=== PATIENT | female | born 1950 | race Caucasian/White ===

== ENCOUNTER 2019-02-14 18:58 | Inpatient (IN) | payer MEDICARE ==
[2019-02-14 20:43] LABS: #Lymphocytes 0.9 thou/uL (1.20-3.40); #Monocytes 0.5 thou/uL (0.11-0.59); #Neutrophils 3.5 thou/uL (1.40-6.50); %Basophils 0.2 % (0.0-1.0); %Eosinophils 0.1 % (0.0-10.0); %Monocytes 9.8 % (0.0-10.0); %Neutrophils 71.9 % (42.0-75.0); Hemoglobin 10.2 g/dL (12.0-16.0); Mean Corpuscular HGB CONC 33.1 g/dL (32.0-36.0); Mean Corpuscular Volume 96.7 fL (78.0-98.0); Mean Platelet Volume 5.7 fL (7.4-10.4); Platelet Count 192 thou/uL (130-400); White Blood Cell (WBC) Count 4.9 thou/uL (4.8-10.8)
[2019-02-14] MEDS ORDERED: metroNIDAZOLE 500 MG/100 ML BAG ONE (20:45)
[2019-02-14] MEDS ORDERED: cefTRIAXone\\ROCEPHIN 1 GM VIAL ONE (20:45)
--- NOTE | 2019-02-14 20:52 | RAD ---
RADIOGRAPH CHEST 1 VIEW: DATE: 02/14/2019 HISTORY: 68-year-old female with fever FINDINGS: There are no airspace densities, pulmonary edema, pneumothorax, or cardiomegaly. The lateral costophr enic angles are sharp. IMPRESSION: No acute cardiopulmonary findings.
[2019-02-14 21:05] LABS: ALT (SGPT) 27 U/L (8-55); AST (SGOT) 32 U/L (5-34); Albumin 2.9 g/dL (3.4-4.8); Alkaline Phosphatase 95 U/L (40-150); Anion Gap 9 mmol/L (10-20); BUN (Urea Nitrogen) 36 mg/dL (9.8-20.1); Bilirubin, Total 0.2 mg/dL (0.2-1.2); Calc. Creatinine Clearance 0 mL/min (70-130); Calcium 8.2 mg/dL (7.8-10.44); Carbon Dioxide 16 mmol/L (23-31); Chloride 103 mmol/L (98-107); Estimated GFR-MDRD 26; Globulin 2.8 g/dL (2.4-3.5); Glucose 213 mg/dL (80-115); Magnesium 2.4 mg/dL (1.6-2.6); Potassium 4.1 mmol/L (3.5-5.1); Protein, Total 5.7 g/dL (6.0-8.3); Sodium 124 mmol/L (136-145)
--- NOTE | 2019-02-14 21:24 | CT ---
Exam: Abdomen CT without contrast Pelvic CT without contrast HISTORY: Abdominal pain. COMPARISON: 05/14/2013 FINDINGS: Abdomen CT: Lung bases:Chronic changes Heart size: Normal size. No significant pericardial fluid Aorta: Atherosclerosis. No periaortic fat stranding. Solid organs: Limited evaluation due to lack of IV contrast. Grossly no solid organ abnormality. Lymph nodes: No gastrohepatic, retrocrural or periportal lymphadenopathy Gallbladder: Not appreciated and is presumed to be surgically absent. Mesentery: No mass, lymphadenopathy, free air or free fluid Kidneys: Bilaterally, no hydronephrosis, nephrolithiasis or perinephric fat stranding. Bilateral uret ers have a normal caliber. No hydroureter, periureteral fat stranding or ureterolithiasis. Alimentary canal: Limited evaluation due to technique. Small hiatal hernia is noted. Grossly the zehra alvarez mucosa are unremarkable. Multiple normal caliber small bowel loops are noted. Limited evaluation of the ileocecal junction. Some of the small bowel loops do appear to be somewhat distende d. Ileus or early obstructive process cannot be excluded. There is mucosal thickening involving the visualized distal descending and sigmoid colon. Copious amount of fecal material in the distal sigmoi d colon and rectum. Correlate for fecal impaction. Findings do suggest the possibility of a right hemicolectomy. Correlate with patient's surgical history. Possible suture chain in the right upper qu adrant. CT PELVIS: No mass, adenopathy, free air or free fluid. Urinary bladder: Unremarkable. Osseous structures: No lytic or blastic lesions IMPRESSION: 1. Limited evaluation due to technique. 2. No evidence of obstructive uropathy 3. Mucosal thickening with fecal material in the left hemicolon as described above. Correlate for com ponent of impaction distal sigmoid colon and rectum. 4. Prominent small bowel loops. Ileus or early obstructive process cannot be excluded. There does darvin ear to be evidence for a previous right hemicolectomy with a suture chain in the right upper quadrant. Correlate with surgical history. Transcribed Date/Time: 02/14/2019 9:29 PM
[2019-02-14 21:47] LABS: Bacteria/HPF 1+ HPF (None Seen); Bilirubin Negative (Negative); Blood, Urine 2+ (Negative); Clarity Clear (Clear); Glucose, Urine (Dipstick) 300 mg/dL (Negative); Leukocyte Negative Leu/uL (Negative); Nitrite Negative (Negative); Protein, Urine (Dipstick) 300 mg/dL (Neg-Trace); RBC/HPF 0-3 HPF (0-3); Squamous Epithelial 0-3 HPF (0-3); Urobilinogen Normal mg/dL (Less than 2); WBC/HPF 0-3 HPF (0-3)
[2019-02-14 22:28] LABS: Base Excess-Venous -10.1 mmol/L (-2.0 to 3.0); Bicarbonate (HCO3v) 16.2 mmol/L (22.0-28.0); Calcium, Ionized 1.15 mmol/L (See Comments:); Chloride 102 mmol/L (98-107); Potassium 4.6 mmol/L (3.5-5.1); Sodium 128 mmol/L (138-145); T. Carbon Dioxide 17.3 mmol/L (22.0-28.0); vO2 Saturation-calc 63.1 % (60.0-85.0)
[2019-02-14 23:46] VITALS: BMI 17.9
[2019-02-15] MEDS: Lactated Ringer's 1,000 ML IV SCH ×2 (00:16→06:08)
[2019-02-15 01:00] LABS: ALT (SGPT) 36 U/L (8-55); AST (SGOT) 52 U/L (5-34); Albumin 2.8 g/dL (3.4-4.8); Alkaline Phosphatase 100 U/L (40-150); Anion Gap 12 mmol/L (10-20); BUN (Urea Nitrogen) 31 mg/dL (9.8-20.1); Bilirubin, Total 0.2 mg/dL (0.2-1.2); Calc. Creatinine Clearance 27 mL/min (70-130); Calcium 8.2 mg/dL (7.8-10.44); Carbon Dioxide 12 mmol/L (23-31); Chloride 104 mmol/L (98-107); Estimated GFR-MDRD 32; Glucose 105 mg/dL (80-115); Potassium 4.5 mmol/L (3.5-5.1); Protein, Total 5.8 g/dL (6.0-8.3); Sodium 123 mmol/L (136-145)
[2019-02-15 05:40] LABS: ALT (SGPT) 33 U/L (8-55); AST (SGOT) 40 U/L (5-34); Albumin 2.8 g/dL (3.4-4.8); Alkaline Phosphatase 98 U/L (40-150); Anion Gap 9 mmol/L (10-20); BUN (Urea Nitrogen) 28 mg/dL (9.8-20.1); Bilirubin, Total 0.2 mg/dL (0.2-1.2); Calc. Creatinine Clearance 26 mL/min (70-130); Calcium 8.1 mg/dL (7.8-10.44); Carbon Dioxide 18 mmol/L (23-31); Chloride 102 mmol/L (98-107); Estimated GFR-MDRD 31; Globulin 2.8 g/dL (2.4-3.5); Glucose 109 mg/dL (80-115); Potassium 4.1 mmol/L (3.5-5.1); Protein, Total 5.6 g/dL (6.0-8.3); Sodium 125 mmol/L (136-145)
[2019-02-15] MEDS ORDERED: Ondansetron ODT 4 MG TAB PO PRN (07:09)
[2019-02-15] MEDS ORDERED: Cepastat Lozenges 1 LOZ PO PRN (07:09)
[2019-02-15] MEDS ORDERED: Bisacodyl 10 MG SUPP PR PRN (07:09)
[2019-02-15] MEDS ORDERED: Ondansetron PF 4 MG/2 ML Vial IVP PRN (07:09)
[2019-02-15] MEDS ORDERED: hydrALAZINE 20 MG/ML VIAL SLOW IVP PRN (07:09)
[2019-02-15] MEDS ORDERED: Loratadine 10 MG TAB PO PRN (07:09)
[2019-02-15] MEDS ORDERED: Diabetic Tussin 200 MG/10 ML UDCUP PO PRN (07:09)
[2019-02-15] MEDS ORDERED: HYDROcodone/Acetaminophen 5/325 mg Tablet PO PRN (07:09)
[2019-02-15] MEDS ORDERED: Zolpidem Tartrate 5 MG TAB PO PRN (07:09)
[2019-02-15] MEDS ORDERED: Sodium Chloride 0.65% Nasal 44 ML BOT EA NARE PRN (07:09)
[2019-02-15] MEDS ORDERED: Calcium Carbonate 500 MG ChewTAB PO PRN (07:09)
[2019-02-15] MEDS ORDERED: Artificial Tears 18 DROP/0.9 ML EA EYE PRN (07:09)
[2019-02-15] MEDS ORDERED: Senokot S 8.6-50 MG TAB PO PRN (07:09)
[2019-02-15] MEDS ORDERED: Acetaminophen 325 MG TAB PO PRN (07:09)
[2019-02-15] MEDS ORDERED: Vancomycin HCl 1 GM in Premix Bag 1 BAG IVPB SCH (07:45)
[2019-02-15] MEDS ORDERED: Vancomycin HCl 250 MG in Sodium Chloride 0.9% 100 ML IVPB SCH (07:45)
[2019-02-15] MEDS ORDERED: Vancomycin HCl 500 MG in Sodium Chloride 0.9% 100 ML IVPB SCH (07:45)
[2019-02-15] MEDS ORDERED: Vancomycin HCl 750 MG in Sodium Chloride 0.9% 250 ML 250 ML IVPB SCH (07:45)
[2019-02-15] MEDS: 1/2 NS w/KCL 20 mEq 1,000 ML IV SCH ×3 (08:57→23:36)
[2019-02-15] MEDS: Enoxaparin Sodium 30 MG/0.3 ML SYRINGE SC SCH (08:57)
[2019-02-15] MEDS: Famotidine 20 MG TAB PO SCH (08:58)
[2019-02-15] MEDS: Saccharomyces boulardii 250 MG CAP PO SCH (08:58)
[2019-02-15] MEDS ORDERED: Prevnar 13-Val Conj/PF 0.5 ML SYRINGE IM ONE (09:00)
[2019-02-15] MEDS: Piperacillin/Tazobactam 3.375 GM in Sodium Chloride 0.9% 100 ML IVPB SCH ×3 (11:26→23:36)
--- NOTE | 2019-02-15 11:46 | HP ---
PRIMARY CARE PHYSICIAN: [facility]. REASON FOR ADMISSION: Transfer from [facility] for colitis, sepsis. HISTORY OF PRESENT ILLNESS: A 68-year-old female, who has underlying history of ulcerative colitis. The patient is on chronic immunosuppressive therapy with Humira. The patient was having lower abdominal discomfort as well as diarrhea and nausea as well as fever with chills at home. She was feeling more and more weak. She had a syncopal episode at home today. The patient was brought by her to [facility], where the patient was found with hyponatremia, hypomagnesemia. The patient was transferred to our hospital. In our emergency room, the patient was febrile with a temperature 102.4. She had CT abdomen and pelvis, which showed finding suggestive of colitis as well as suspected finding of ileus versus fecal impaction. The patient denies any vomiting. She denies any abdominal pain. She had good bowel movement earlier today. She denies any chest pain, palpitation, but she is feeling weak, dizzy, and malaise. She has intermittent rigors. She denies any UTI symptoms. She denies any recent upper respiratory or lower respiratory symptoms. She denies any sick exposure or recent travel, and she denies any antibiotic exposure. REVIEW OF SYSTEMS: CONSTITUTIONAL: Negative for weight loss or gain, ability to conduct usual activities. SKIN: Negative for rash, itching. EYES: Negative for double vision, pain. ENT/MOUTH: Negative for nose bleeding, neck stiffness, pain, tenderness. CARDIOVASCULAR: Negative for palpitations, dyspnea on exertion, orthopnea. RESPIRATORY: Negative for shortness of breath, wheezing, cough, hemoptysis, fever or night sweats. GASTROINTESTINAL: Negative for poor appetite, abdominal pain, heartburn, nausea, vomiting, constipation, or diarrhea. GENITOURINARY: Negative for urgency, frequency, dysuria, nocturia. MUSCULOSKELETAL: Negative for pain, swelling. NEUROLOGIC/PSYCHIATRIC: Negative for anxiety, depression. ALLERGY/IMMUNOLOGIC: Negative for skin rash, bleeding tendency. Please see my HPI for pertinent positives and negatives. All other review of systems reviewed and negative except as mentioned in HPI. PAST MEDICAL HISTORY: Glomerulonephritis, ulcerative colitis, and history of colon cancer. PAST SURGICAL HISTORY: Colon cancer surgery and tonsillectomy. PAST PSYCHIATRIC HISTORY: Reviewed and negative. SOCIAL HISTORY: The patient is , lives at home with her . No history of tobacco, alcohol, or illicit drug abuse. FAMILY HISTORY: No family history of coronary artery disease, stroke, or cancer. CURRENT HOME MEDICATION: Humira 40 mg subcu every 2 weeks. ALLERGIES: PANTOPRAZOLE. EMERGENCY ROOM COURSE: Reviewed. PHYSICAL EXAMINATION: VITAL SIGNS: On arrival, blood pressure 144/57, pulse 90, respiratory rate 22, temperature 102.4, saturation 99% on room air, and weight 54.4 kg. GENERAL: The patient is currently alert, awake. No obvious acute distress. HEENT: Head; normocephalic and atraumatic. Eyes; pupils round and reactive to light. Extraocular muscle intact. ENT, oropharynx within normal limits. Dry appearing mucous membranes. No oral lesion. No pharyngeal erythema. No exudate. NECK: Supple. No JVD. No thyromegaly. No carotid bruit. No jugular venous distention. LUNGS: Clear to auscultation without any rhonchi or rales. CARDIAC: S1 and S2 regular. No murmur. No gallop. No rub. ABDOMEN: Soft. Mild left-sided tenderness noted. No peritoneal sign. No organomegaly. No mass. No suprapubic tenderness. BACK: Unremarkable. No CVA tenderness. EXTREMITIES: Upper extremity, passive movement of all joints are normal. Lower extremity, no edema. Good distal pulsation. SKIN: No skin rash. HEMATOLOGIC: No lymphadenopathy. NEUROLOGIC: Nonfocal examination. SIGNIFICANT LABORATORY DATA: Chest x-ray based on my review, no acute cardiopulmonary process. CT abdomen and pelvis showing small bowel loops appear somewhat distended. Distal descending and sigmoid colon thickening. Copious amount of fecal material in distal sigmoid colon and rectum. CBC; WBC 4.9, hemoglobin 10.2, platelet 192. VBG; pH , bicarb 16.2, CO2 of 36.0, pO2 of 37.2. BMP; sodium 125, potassium 4.1, chloride 102, carbon dioxide 18, BUN 28, creatinine 1.62, glucose 109, calcium 8.1. LFT; AST 40, ALT 33, alkaline phosphatase 98, albumin 2.8. TSH 1.01. Cortisol 17.7. Urinalysis unremarkable. ASSESSMENT AND PLAN: 1. Acute on chronic kidney failure, baseline chronic kidney disease stage 3, likely related with underlying diarrhea and volume depletion. The patient will be given IV fluid. We will monitor renal function. Avoid nephrotoxin agent. 2. Colitis. We will check stool for infection workup including ova and parasite, Campylobacter antigen culture, C difficile, Escherichia coli, Shigella toxin. The patient will be kept on empiric antibiotic therapy with Zosyn. The patient has underlying history of ulcerative colitis and that is why inflammatory process is also likely. We will consult Gastroenterology for their evaluation. 3. Fecal impaction. The patient had good bowel movement, less likely to be fecal impacted at this point. 4. Hypomagnesemia, replaced in the emergency room. We will repeat magnesium level tomorrow. 5. Hyponatremia. We will send TSH, random cortisol, urine osmolality, serum osmolality. We will continue with IV fluid NS and we will repeat BMP tomorrow. 6. Sepsis, likely due to underlying colitis. We will rule out infectious etiology. The patient is already on empiric Zosyn. The patient meets sepsis criteria on admission. 7. History of normocytic normochromic anemia. We will continue to monitor hemoglobin. 8. History of malignant neoplasm of colon, treated with colectomy. 9. History of ulcerative colitis, treated with immunosuppressive therapy. GI consulted. 10. Deep venous thrombosis prophylaxis, Lovenox 30 mg subcu daily. GI prophylaxis, Pepcid 20 mg p.o. b.i.d. 11. Hypoalbuminemia due to moderate protein-calorie malnutrition. Nutritional support will be given. CODE STATUS: The patient is full code. The patient's is surrogate decision maker. DISPOSITION PLAN: Based on clinical course, we are expecting the patient's stay in hospital more than 2 midnights. Plan of care discussed with the patient in detail. Job ID: [id number]
[2019-02-15 15:03] LABS: Creatinine, Urine 40.5 mg/dL (47-110)
[2019-02-16 05:58] LABS: ALT (SGPT) 31 U/L (8-55); AST (SGOT) 37 U/L (5-34); Albumin 2.3 g/dL (3.4-4.8); Alkaline Phosphatase 82 U/L (40-150); Anion Gap 10 mmol/L (10-20); BUN (Urea Nitrogen) 24 mg/dL (9.8-20.1); Bilirubin, Total 0.2 mg/dL (0.2-1.2); Calc. Creatinine Clearance 23 mL/min (70-130); Calcium 7.7 mg/dL (7.8-10.44); Carbon Dioxide 14 mmol/L (23-31); Chloride 103 mmol/L (98-107); Estimated GFR-MDRD 27; Globulin 2.3 g/dL (2.4-3.5); Glucose 83 mg/dL (80-115); Magnesium 1.6 mg/dL (1.6-2.6); Potassium 4.1 mmol/L (3.5-5.1); Protein, Total 4.6 g/dL (6.0-8.3); Sodium 123 mmol/L (136-145)
[2019-02-16 06:00] LABS: Phosphorus 2.8 mg/dL (2.3-4.7)
[2019-02-16] MEDS: Piperacillin/Tazobactam 3.375 GM in Sodium Chloride 0.9% 100 ML IVPB SCH ×3 (06:06→18:22)
[2019-02-16 08:04] LABS: Band 26 % (5-11); Hemoglobin 8.8 g/dL (12.0-16.0); Lymphocytes 39 % (21-51); MDiff Complete? YES; Mean Corpuscular HGB CONC 32.8 g/dL (32.0-36.0); Mean Corpuscular Hemoglobin 32.7 pg (27.0-31.0); Mean Corpuscular Volume 99.6 fL (78.0-98.0); Mean Platelet Volume 5.9 fL (7.4-10.4); Monocytes 9 % (0-10); Neutrophil 23 % (42-75); Platelet Count 149 thou/uL (130-400); RBC Distribution Width 11.2 % (11.5-14.5); Red Blood Cell (RBC) Count 2.69 mill/uL (4.20-5.40); White Blood Cell (WBC) Count 3.8 thou/uL (4.8-10.8)
[2019-02-16] MEDS: Saccharomyces boulardii 250 MG CAP PO SCH (09:23)
[2019-02-16] MEDS: Enoxaparin Sodium 30 MG/0.3 ML SYRINGE SC SCH (09:24)
[2019-02-16] MEDS: Famotidine 20 MG TAB PO SCH (09:24)
[2019-02-16] MEDS: Vancomycin HCl 500 MG in Sodium Chloride 0.9% 100 ML IVPB SCH (09:25)
--- NOTE | 2019-02-16 09:31 | PDOC.PN ---
- Subjective Encounter Start Date: 02/16/19 Encounter Start Time: 08:30 -: old records requested/rev pt has her chronic diarrhoea, no abdominal pain, today her sodium dropped and creatinine increased - Objective Resuscitation Status - Order Detail: 02/15/19 07:09 Resuscitation Status Routine Resuscitation Status: FULL: Full Resuscitation MAR Reviewed: Yes Vital Signs & Weight: Vital Signs (12 hours) Temp Pulse Resp BP Pulse Ox 02/16/19 07:54 98 F 65 16 96/57 L 98 02/16/19 04:20 98.0 F 67 20 100/55 L 98 02/15/19 23:18 98 F 73 16 111/62 98 Weight Admit Weight 114 lb 4.8 oz Weight 114 lb 4.8 oz I&O: 02/15/19 02/16/19 02/17/19 06:59 06:59 06:59 Intake Total 1240 Balance 1240 Result Diagrams: 02/16/19 05:07 02/16/19 05:07 Phys Exam - Physical Examination Constitutional: NAD HEENT: PERRLA, moist MMs, sclera anicteric Neck: no JVD, supple Respiratory: no wheezing, no rales, no rhonchi Cardiovascular: RRR, no significant murmur, no rub Gastrointestinal: soft, non-tender, no distention, positive bowel sounds Musculoskeletal: no edema, pulses present Neurological: non-focal, normal sensation Lymphatic: no nodes Psychiatric: normal affect, A&O x 3 Skin: no rash, normal turgor Dx/Plan (1) Acute worsening of stage 3 chronic kidney disease Code(s): N18.3 - CHRONIC KIDNEY DISEASE, STAGE 3 (MODERATE) Status: Acute (2) Colitis Code(s): K52.9 - NONINFECTIVE GASTROENTERITIS AND COLITIS, UNSPECIFIED Status : Acute (3) Fecal impaction Code(s): K56.41 - FECAL IMPACTION Status: Resolved (4) Hypomagnesemia Code(s): E83.42 - HYPOMAGNESEMIA Status: Resolved (5) Hyponatremia Code(s): E87.1 - HYPO-OSMOLALITY AND HYPONATREMIA Status: Acute (6) Sepsis Code(s): A41.9 - SEPSIS, UNSPECIFIED ORGANISM Status: Acute (7) Anemia, normocytic normochromic Code(s): D64.9 - ANEMIA, UNSPECIFIED Status: Chronic (8) H/O malignant neoplasm of colon Code(s): Z85.038 - PERSONAL HISTORY OF MALIGNANT NEOPLASM OF LARGE INTESTINE Status: Chronic (9) H/O ulcerative colitis Code(s): Z87.19 - PERSONAL HISTORY OF OTHER DISEASES OF THE DIGESTIVE SYSTEM Status: Chronic (10) Protein-calorie malnutrition, moderate Code(s): E44.0 - MODERATE PROTEIN-CALORIE MALNUTRITION Status: Chronic (11) Ileus Code(s): K56.7 - ILEUS, UNSPECIFIED Status: Resolved (12) Metabolic acidosis Code(s): E87.2 - ACIDOSIS Status: Acute - Plan cont current plan of care, continue antibiotics * continue empiric antibiotics * stool for infection work up negative * discontinue IVF * GI recommendation noted * medication reviewed as below * symptomatic treatment * follow culture * will consider discharge if culture continue to be negative. * continue nephrology * will add sodium bicarbonate 650 mg po bid * repeat labs tomorrow Review of Systems - Review of Systems Eyes: negative: Pain, Vision Change, Conjunctivae Inflammation, Eyelid Inflammation, Redness, Other ENT: negative: Ear Pain, Ear Discharge, Nose Pain, Nose Discharge, Nose Congestion, Mouth Pain, Mouth Swelling, Throat Pain, Throat Swelling, Other Respiratory: negative: Cough, Dry, Shortness of Breath, Hemoptysis, SOB with Excertion, Pleuritic Pain, Sputum, Wheezing Cardiovascular: negative: chest pain, palpitations, orthopnea, paroxysmal nocturnal dyspnea, edema, light headedness, other Gastrointestinal: Diarrhea. negative: Nausea, Vomiting, Abdominal Pain, Constipation, Melena, Hematochezia, Other Genitourinary: negative: Dysuria, Frequency, Incontinence, Hematuria, Retention , Other Musculoskeletal: negative: Neck Pain, Shoulder Pain, Arm Pain, Back Pain, Hand Pain, Leg Pain, Foot Pain, Other Skin: negative: Rash, Lesions, Ihsan, Bruising, Other - Medications/Allergies Allergies/Adverse Reactions: Allergies Allergy/AdvReac Type Severity Reaction Status Date / Time pantoprazole sodium Allergy Intermediate Rash Verified 04/12/13 10:47 [From Protonix] corn [[place]] Allergy Verified 04/10/13 22:10 milk Allergy Verified 04/10/13 22:10 wheat Allergy Verified 04/10/13 22:10 Medications: Current Medications Acetaminophen (Tylenol) 650 mg PO Q4H PRN PRN Reason: Headache/Fever/Mild Pain (1-3) Hydrocodone Bitart/Acetaminophen ([place] 5/325) 1 tab PO Q4H PRN PRN Reason: Moderate Pain (4-6) Artificial Tears (Tears Naturale) 2 drop EA EYE PRN PRN PRN Reason: Dry Eyes Bisacodyl (Dulcolax) 10 mg NE DAILYPRN PRN PRN Reason: Constipation Calcium Carbonate (Tums) 1,000 mg PO Q4H PRN PRN Reason: Heartburn or Indigestion Enoxaparin Sodium (Lovenox) 30 mg SC 0900 [facility] Last Admin: 02/16/19 09:24 Dose: 30 mg Famotidine (Pepcid) 20 mg PO DAILY [facility] Last Admin: 02/16/19 09:24 Dose: 20 mg Guaifenesin (Robitussin Sf) 200 mg PO Q4H PRN PRN Reason: Cough Hydralazine HCl (Apresoline) 10 mg SLOW IVP Q4H PRN PRN Reason: SBP > 180 and HR < 70 Piperacillin Sod/Tazobactam (Sod 3.375 gm/ Sodium Chloride) 100 mls @ 200 mls/ hr IVPB Q6HR [facility] Last Admin: 02/16/19 06:06 Dose: 100 mls Vancomycin HCl 500 mg/ Sodium (Chloride) 100 mls @ 100 mls/hr IVPB 0900 [facility] Last Admin: 02/16/19 09:25 Dose: 100 mls Loratadine (Claritin) 10 mg PO DAILYPRN PRN PRN Reason: Sinus Symptoms Miscellaneous Medication (Pharmacy To Dose) 1 each IVPB PRN PRN PRN Reason: Pharmacy to dose Ondansetron HCl (Zofran Odt) 4 mg PO Q6H PRN PRN Reason: Nausea/Vomiting Ondansetron HCl (Zofran) 4 mg IVP Q6H PRN PRN Reason: Nausea/Vomiting Saccharomyces Boulardii (Florastor) 250 mg PO DAILY [facility] Last Admin: 02/16/19 09:23 Dose: 250 mg Senna/Docusate Sodium (Senokot S) 2 tab PO BID PRN PRN Reason: Constipation Sodium Chloride ([place] Nasal [place] 0.65%) 0 ml EA NARE QIDPRN PRN PRN Reason: Nasal Congestion Throat Lozenges (Cepastat Lozenges) 1 ori PO Q2H PRN PRN Reason: Sore Throat Zolpidem Tartrate (Ambien) 5 mg PO HSPRN PRN PRN Reason: Insomnia
[2019-02-16] MEDS ORDERED: Albumin 25% 25 GM/100 ML BOT IVPB SCH ×2 (11:17→13:00)
[2019-02-16] MEDS ORDERED: Sodium Bicarbonate Tab 325 MG TAB PO SCH (11:30)
[2019-02-16] MEDS: Lactated Ringer's 1,000 ML IV SCH ×2 (12:17→22:42)
--- NOTE | 2019-02-16 12:43 | CON ---
DATE OF CONSULTATION: HISTORY OF PRESENT ILLNESS: Ms. Allison is a 68-year-old white female, who was admitted for volume depletion. According to the patient, she has been taking medications that will purge her and cause her to lose some weight. She has not been doing well since she has been doing this. She went to the ER and she was found to be with superimposed acute kidney injury on top of her chronic renal failure. In addition, she was noted to be hyponatremic. We are now being consulted for acute kidney injury on top of her chronic renal failure, as well as the hyponatremia. I reviewed the previous IV fluid and she was getting a half- normal saline. My plan is to give her a full normal saline-lactated Ringer's. In addition, she was noted to be hypoalbuminemic. No other complaints today. Denies any chest pain or shortness of breath. REVIEW OF SYSTEMS: No chest pain. No shortness of breath. No nausea. No vomiting. No diarrhea. No constipation. No productive cough. No fever or chills. No syncopal episode. ? of fever. MEDICATIONS: Currently, 1. [place] 5/325 q.6 p.r.n. 2. Tums 1000 mg q.4 p.r.n. 3. Famotidine 20 mg daily. 4. Lovenox 30 mg subcu daily. 5. Zofran 4 mg q.6 p.r.n. 6. Zosyn 3.375 g IV q.6. 7. Sodium bicarbonate 650 mg p.o. x1 dose. 8. Status post vancomycin. PAST MEDICAL HISTORY: 1. 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 2. Ulcerative colitis. 3. History of nephrotic range proteinuria. 4. History of colon cancer in remission. PAST SURGICAL HISTORY: Status post tonsillectomy, status post renal biopsy, status post upper and lower GI endoscopy, and status post colon resection. SOCIAL HISTORY: The patient is , 2 children. Currently lives in [place]. She is retired. Education, college courses. No IV drug abuse. Currently, no smoking or alcohol intake. Status post blood transfusion. ALLERGIES: NONE. TRAUMA: None. IMMUNIZATION: Not up-to-date. HOSPITALIZATION: Please see past medical history. FAMILY HISTORY: No family history of ESRD. PHYSICAL EXAMINATION: VITAL SIGNS: Blood pressure 96/57, heart rate 65, respiratory rate 16, temperature 98, and pulse ox 98% on room air. GENERAL: Awake, alert, comfortable, not in distress. SKIN: Adequate turgor. HEENT: She has a slightly pale conjunctivae. Anicteric sclerae. NECK: No neck mass. No carotid bruits. No JVD. CHEST: No deformities. LUNGS: Clear breath sounds. No wheezing. No crackles. HEART: Normal sinus rhythm. No murmur. No gallops. No rubs. ABDOMEN: Globular, soft. Nontender. No masses. EXTREMITIES: No edema. No deformities. NEUROLOGICAL: Moving all extremities. No tremors. No asterixis. No ataxia. LABORATORY DATA: Laboratories of February 16, 2019, white count 3.8, hemoglobin 8.8. Sodium 123, potassium 4.1, chloride 103, carbon dioxide 14, BUN 24, creatinine 1.83, calcium 7.7, glucose 83, AST 37, ALT 31, albumin 2.3. February 14, 2019, urinalysis, specific gravity is 1.010, protein is 300, rbc's 0 to 3, wbc's 0 to 3. Urine creatinine 40.5, urine sodium is 22. IMAGING STUDIES: Chest x-ray of February 14, 2019, no acute cardiopulmonary findings. CT scan of the abdomen and pelvis. No evidence of obstructive uropathy. Prominent bowel loops. ASSESSMENT AND PLAN: 1. Hyponatremia-I suspect hypovolemic hyponatremia. Start the patient on lactated Ringer's solution at 75 to 100 mL/hour. 2. Decreased blood pressure-albumin infusion will also be done at 25 g IV q.6 in view of the low albumin with the patient. She has had in the past proteinuria related to her membranous nephropathy. 3. Ulcerative colitis-managed by her GI doctors. In the near future, she will be restarted on Humira on a weekly dosing by her regular faculty head. There is no indication for any dialytic intervention. 4. Acute kidney injury on top of chronic renal failure. She has a superimposed prerenal azotemia. Albumin infusion and lactated Ringer's will be given. No indication for any dialytic intervention. Her underlying CRF is from a glomerulonephritis Job ID: [id number] [facility]
[2019-02-16] MEDS: Albumin 25% 25 GM/100 ML BOT IVPB SCH ×2 (17:28→22:42)
[2019-02-16] MEDS: Sodium Bicarbonate Tab 325 MG TAB PO SCH (20:17)
[2019-02-17] MEDS: Piperacillin/Tazobactam 3.375 GM in Sodium Chloride 0.9% 100 ML IVPB SCH ×4 (00:08→17:41)
[2019-02-17] MEDS: Albumin 25% 25 GM/100 ML BOT IVPB SCH ×4 (05:00→22:14)
[2019-02-17 06:26] LABS: Anion Gap 10 mmol/L (10-20); BUN (Urea Nitrogen) 23 mg/dL (9.8-20.1); Calc. Creatinine Clearance 21 mL/min (70-130); Calcium 8.3 mg/dL (7.8-10.44); Carbon Dioxide 18 mmol/L (23-31); Chloride 107 mmol/L (98-107); Estimated GFR-MDRD 24; Glucose 82 mg/dL (80-115); Potassium 3.8 mmol/L (3.5-5.1); Sodium 131 mmol/L (136-145)
[2019-02-17 06:30] LABS: Band 13 % (5-11); Hemoglobin 7.6 g/dL (12.0-16.0); Lymphocytes 36 % (21-51); MDiff Complete? YES; Mean Corpuscular HGB CONC 33.5 g/dL (32.0-36.0); Mean Corpuscular Hemoglobin 33.2 pg (27.0-31.0); Mean Platelet Volume 6.1 fL (7.4-10.4); Monocytes 16 % (0-10); Neutrophil 35 % (42-75); Platelet Count 145 thou/uL (130-400); RBC Distribution Width 11.3 % (11.5-14.5); Red Blood Cell (RBC) Count 2.28 mill/uL (4.20-5.40); White Blood Cell (WBC) Count 3.9 thou/uL (4.8-10.8)
[2019-02-17] MEDS: Saccharomyces boulardii 250 MG CAP PO SCH (08:21)
[2019-02-17] MEDS: Enoxaparin Sodium 30 MG/0.3 ML SYRINGE SC SCH (08:21)
[2019-02-17] MEDS: Famotidine 20 MG TAB PO SCH (08:21)
[2019-02-17] MEDS: Sodium Bicarbonate Tab 325 MG TAB PO SCH ×2 (08:21→20:32)
[2019-02-17 08:55] LABS: Vancomycin, Trough 8.4 ug/mL
[2019-02-17] MEDS ORDERED: Albumin 25% 25 GM/100 ML BOT IVPB ONE (09:01)
[2019-02-17] MEDS: Vancomycin HCl 500 MG in Sodium Chloride 0.9% 100 ML IVPB SCH (09:31)
--- NOTE | 2019-02-17 09:40 | CON ---
DATE OF CONSULTATION: 02/15/2019 REASON FOR CONSULTATION: History of ulcerative colitis, diarrhea, hypomagnesemia, and hyponatremia. HISTORY OF PRESENT ILLNESS: Ms. Rosario Allison is a very pleasant 68-year-old female, who has seen Dr. Panchito Tellez before. After Dr. Tellez quit his practice, she has been seeing Dr. Tone Miller. The patient has a history of longstanding ulcerative colitis. She had a colonoscopy in September [address] Panchito Tellez and was found to have active colitis over the rectum and left colon. She was started on Humira 40 mg every other week. She was seen by Dr. Miller recently and undergo flexible sigmoidoscopy in the office and was found to have still active colitis in the rectum and sigmoid colon area. She was advised to increase the Humira 40 mg every other week to once a week. She has been taking once a week Humira over the last couple of weeks. The patient usually has about 3 to 4 stools per day. The patient noticed having constipation. The patient has been taking a bowel cleansing recently and has severe diarrhea over the last several days. She became very weak, lethargic, and actually had syncopal episode at home. She fell on her right hip and had some bruising of the right hip. The patient was brought to the ER, initially at [facility] and subsequently was transferred here. She is severely hyponatremic with sodium of 124 on admission, now is coming up to 125 with IV hydration. This morning, she is actually awake, alert, and communicative. She has no abdominal pain. No nausea or vomiting. She is on clear liquid diet. She has had three or four stools through the night. No blood in the stool. The serum sodium today _is 125. Her other lab done relevant information is BUN is 36 coming down to 28, creatinine 1.94 coming down to 1.62. Magnesium level 2.4. The patient has no abdominal pain, no nausea, no vomiting. She has no relevant history. ALLERGIES: SHE IS ALLERGIC TO PHENERGAN. SOCIAL HISTORY: The patient does not smoke or drink alcohol. MEDICAL ILLNESSES: 1. Longstanding ulcerative colitis on medical therapy. 2. Colon cancer, right colon status post right colectomy in 2012. 3. History of glomerulonephritis and see Dr. Harrison over the last 10+ years. 4. No history of hypertension, diabetes, heart disease, lung disease. PAST SURGICAL HISTORY: Surgeries as listed. MEDICATION LIST: Reviewed. FAMILY HISTORY: Mother, cardiac arrhythmia; father, Alzheimer's dementia; brother, prostate cancer; daughter of ovarian cancer in 2013. REVIEW OF SYSTEMS: A 10-point system review; CONSTITUTIONAL: No history of fever. No weight loss. Her energy level is good until the last couple of days with the diarrhea. No loss of weight. HEAD: No headache, had syncope yesterday. ENT: Unremarkable. NECK: No stiffness or limitation of movement. BREASTS: No breast masses or any discharge from the nipple. LUNGS: No chronic coughing. No hemoptysis. No dyspnea. CARDIOVASCULAR: No chest pain. No orthopnea or PND. No dyspnea. No palpitation. GI: History of ulcerative colitis with diarrhea. : Not known. MUSCULOSKELETAL: Not known. NEUROLOGIC: Not known. ENDOCRINE: Not known. PHYSICAL EXAMINATION: GENERAL: She is a very pleasant young looking female, appears very comfortable. She is awake, alert, oriented to time, place, and person. She is in no distress. VITAL SIGNS: Temperature 99.2 degrees Fahrenheit, pulse is 84, blood pressure is 122/67. HEENT: Conjunctivae clear. NECK: Supple. No adenitis or thyromegaly noted. CARDIOVASCULAR: First and second heart sound normal. LUNGS: Clear to auscultation. ABDOMEN: Soft. No organomegaly. No tenderness. No mass. EXTREMITIES: Reveal no edema. LABORATORY DATA: Chemistry panel shows sodium 124, coming up to 125; potassium 4.1, chloride 102, bicarb 18, BUN is 9, creatinine is 1.62, BUN 28, calcium 8.1, bilirubin 0.2, AST 40, ALT 33, alkaline phosphatase 98, albumin 2.8. CBC; WBC 4900, hemoglobin 10.2, hematocrit 30.9, MCV 93.7, platelet count 192,000. IMPRESSION: 1. A 68-year-old female with ulcerative colitis on Humira 40 mg once a week. She has been taking bowel cleansing and has developed diarrhea, fatigue, and near syncope yesterday. On admission, she was dehydrated with BUN of 38, now the BUN is coming down. She is also hyponatremic. She needs large amount of free water to correct the hyponatremia. 2. History of glomerulonephritis with Nephrology followed by Dr. Harrison for more than 10 years. 3. Elevation of BUN. Most likely it represent acute on chronic kidney disease. 4. Ulcerative colitis. 5. Colon cancer, status post right colectomy. RECOMMENDATIONS: 1. Diet as tolerated. 2. I advised Ms. Allison to drink plenty of fluids. We will follow the chem 7. If her sodium comes back to normal, we will consider discharge. Job ID: [id number] [facility]
--- NOTE | 2019-02-17 09:48 | PRG ---
DATE OF SERVICE: 02/17/2019 SUBJECTIVE: Ms. Allison is a 68-year-old white female, who was admitted for volume depletion. She was noted to be having slightly higher creatinine from her baseline as well as hyponatremic. IV fluids have been changed. In addition, albumin infusion has been given. She voices no new complaints. She feels little better today. She has complained of some abdominal fullness. Denies any chest pain or shortness of breath. OBJECTIVE: VITAL SIGNS: Blood pressure 121/67, heart rate 64, respiratory rate 16, temperature 98, and pulse ox 98%. GENERAL: Noted to be awake, sitting comfortable, not in distress. SKIN: Adequate turgor. HEENT: She has slightly pale conjunctivae. Anicteric sclerae. NECK: No neck mass. No carotid bruits. No JVD. CHEST: No deformities. LUNGS: Clear breath sounds. No wheezing. No crackles. HEART: Normal sinus rhythm. No murmur. No gallops. No rubs. ABDOMEN: Globular, soft, and nontender. No masses. EXTREMITIES: No edema. No deformities. MEDICATIONS: Medications of February 17, 2019, were reviewed. LABORATORY DATA: Laboratories of February 17, 2019; white count 3.9, hemoglobin 7.6, and hematocrit 22.6. Sodium 131, potassium 3.8, chloride 107, carbon dioxide 18, BUN 23, creatinine 2.01, GFR 24 mL/minute, glucose 82, and calcium 8.3. Urinalysis of February 14, 2019, urine protein was 300. ASSESSMENT AND PLAN: 1. Hyponatremia, secondary to hypovolemic hyponatremia. The patient is currently on lactated Ringer's. Her half-normal saline has been discontinued. Serum sodium is slowly improving. Continue free water restriction at the same time. 2. Acute kidney injury on top of her chronic renal failure-superimposed prerenal azotemia. Continue IV hydration. Continue lactated Ringer's. In addition, continue albumin infusion. 3. Anemia-the patient may have some occult gastrointestinal bleed. Consider Gastroenterology consult. 4. Recheck basic metabolic panel and CBC in a.m. Job ID: [id number]
[2019-02-17] MEDS ORDERED: Vancomycin HCl 750 MG in Sodium Chloride 0.9% 250 ML 250 ML IVPB SCH (10:00)
[2019-02-17] MEDS: Lactated Ringer's 1,000 ML IV SCH ×3 (10:16→22:14)
--- NOTE | 2019-02-17 11:08 | PRG ---
DATE OF SERVICE: 02/16/2019 SUBJECTIVE: This is a very pleasant 68-year-old female, hospitalized because of hyponatremia, hypomagnesemia, and hypotension. She had IV fluids. On admission, sodium was 123 and came back to 125 yesterday, but back to 123. Potassium 4.1. BUN is 31 and coming down to 24 and creatinine is 1.83. She is having three or four loose stools. No bleeding in the stool. No abdominal pain. No nausea or vomiting. She is actually feeling better. She is on IV fluids, on regular diet. She offers no complaints. OBJECTIVE: VITAL SIGNS: Afebrile. Vital signs are stable with pulse of 65 and blood pressure is 96/57. CARDIOVASCULAR SYSTEM AND LUNGS: Within normal limits. ABDOMEN: Soft. No organomegaly. No tenderness. No masses. EXTREMITIES: Revealed no edema. LABORATORY DATA: The lab data from today shows sodium 123, potassium 4.1, chloride 103, bicarb 14, BUN is 24, creatinine is 1.83, albumin is low at 2.3, bilirubin 1.6, AST 37, ALT 31, and alkaline phosphatase 82. Stool studies showed negative C. difficile antigen and toxin. Campylobacter antigen is negative. Also, Shiga toxin negative. CLINICAL IMPRESSION: 1. Volume depletion with hyponatremia and hypomagnesemia. She took some bowel cleansing and she had pretty bad diarrhea. However, she also has some mild diarrhea because of her colitis. 2. Hyponatremia and hypovolemia. Hyponatremia, IV fluids and drink plenty of fluids. She had h/o chronic kidney disease from before and has seen Dr. Harrison for more than 10 years. 3. Hypoalbuminemia, etiology unclear. RECOMMENDATION: 1. Nephrology consult from Dr. Harrison _. 2. Continue IV fluids. 3. Dr. Harrison will assume care from tomorrow. Job ID: [id number] [facility]
--- NOTE | 2019-02-17 11:35 | PDOC.PN ---
- Subjective Encounter Start Date: 02/17/19 Encounter Start Time: 09:40 Patient seen and examined. No new complaints. No overnight events - Objective Resuscitation Status - Order Detail: 02/15/19 07:09 Resuscitation Status Routine Resuscitation Status: FULL: Full Resuscitation MAR Reviewed: Yes Vital Signs & Weight: Vital Signs (12 hours) Temp Pulse Resp BP Pulse Ox 02/17/19 07:48 98.0 F 64 16 121/67 98 02/17/19 03:45 97.6 F 65 18 128/69 99 02/17/19 00:05 97.9 F 67 18 113/64 98 Weight Admit Weight 114 lb 4.8 oz Weight 114 lb 4.8 oz I&O: 02/16/19 02/17/19 02/18/19 06:59 06:59 06:59 Intake Total 3600 Balance 3600 Result Diagrams: 02/17/19 05:33 02/17/19 05:33 Phys Exam - Physical Examination Constitutional: NAD HEENT: PERRLA, moist MMs, sclera anicteric Neck: no JVD, supple Respiratory: no wheezing, no rales, no rhonchi Cardiovascular: RRR, no significant murmur, no rub Gastrointestinal: soft, non-tender, no distention, positive bowel sounds Musculoskeletal: no edema, pulses present Neurological: non-focal, normal sensation Lymphatic: no nodes Psychiatric: normal affect, A&O x 3 Skin: no rash, normal turgor Dx/Plan (1) Acute worsening of stage 3 chronic kidney disease Code(s): N18.3 - CHRONIC KIDNEY DISEASE, STAGE 3 (MODERATE) Status: Acute (2) Colitis Code(s): K52.9 - NONINFECTIVE GASTROENTERITIS AND COLITIS, UNSPECIFIED Status : Acute (3) Fecal impaction Code(s): K56.41 - FECAL IMPACTION Status: Resolved (4) Hypomagnesemia Code(s): E83.42 - HYPOMAGNESEMIA Status: Resolved (5) Hyponatremia Code(s): E87.1 - HYPO-OSMOLALITY AND HYPONATREMIA Status: Acute (6) Sepsis Code(s): A41.9 - SEPSIS, UNSPECIFIED ORGANISM Status: Acute (7) Anemia, normocytic normochromic Code(s): D64.9 - ANEMIA, UNSPECIFIED Status: Chronic (8) H/O malignant neoplasm of colon Code(s): Z85.038 - PERSONAL HISTORY OF MALIGNANT NEOPLASM OF LARGE INTESTINE Status: Chronic (9) H/O ulcerative colitis Code(s): Z87.19 - PERSONAL HISTORY OF OTHER DISEASES OF THE DIGESTIVE SYSTEM Status: Chronic (10) Protein-calorie malnutrition, moderate Code(s): E44.0 - MODERATE PROTEIN-CALORIE MALNUTRITION Status: Chronic (11) Ileus Code(s): K56.7 - ILEUS, UNSPECIFIED Status: Resolved - Plan cont current plan of care, continue antibiotics * sodium improving, creatinine has no improvement * continue current IVF as per nephrology * GI following * repeat labs tomorrow * medication reviewed as below * symptomatic treatment. Review of Systems - Review of Systems ENT: negative: Ear Pain, Ear Discharge, Nose Pain, Nose Discharge, Nose Congestion, Mouth Pain, Mouth Swelling, Throat Pain, Throat Swelling, Other Respiratory: negative: Cough, Dry, Shortness of Breath, Hemoptysis, SOB with Excertion, Pleuritic Pain, Sputum, Wheezing Cardiovascular: negative: chest pain, palpitations, orthopnea, paroxysmal nocturnal dyspnea, edema, light headedness, other Gastrointestinal: negative: Nausea, Vomiting, Abdominal Pain, Diarrhea, Constipation, Melena, Hematochezia, Other Genitourinary: negative: Dysuria, Frequency, Incontinence, Hematuria, Retention , Other Musculoskeletal: negative: Neck Pain, Shoulder Pain, Arm Pain, Back Pain, Hand Pain, Leg Pain, Foot Pain, Other - Medications/Allergies Allergies/Adverse Reactions: Allergies Allergy/AdvReac Type Severity Reaction Status Date / Time pantoprazole sodium Allergy Intermediate Rash Verified 04/12/13 10:47 [From Protonix] corn [[place]] Allergy Verified 04/10/13 22:10 milk Allergy Verified 04/10/13 22:10 wheat Allergy Verified 04/10/13 22:10 Medications: Current Medications Acetaminophen (Tylenol) 650 mg PO Q4H PRN PRN Reason: Headache/Fever/Mild Pain (1-3) Hydrocodone Bitart/Acetaminophen ([place] 5/325) 1 tab PO Q4H PRN PRN Reason: Moderate Pain (4-6) Albumin Human (Albumin 25%) 25 gm IVPB Q6H JORGE Stop: 02/18/19 04:01 Last Admin: 02/17/19 11:11 Dose: 25 gm Artificial Tears (Tears Naturale) 2 drop EA EYE PRN PRN PRN Reason: Dry Eyes Bisacodyl (Dulcolax) 10 mg [place] DAILYPRN PRN PRN Reason: Constipation Calcium Carbonate (Tums) 1,000 mg PO Q4H PRN PRN Reason: Heartburn or Indigestion Enoxaparin Sodium (Lovenox) 30 mg SC 0900 [facility] Last Admin: 02/17/19 08:21 Dose: 30 mg Famotidine (Pepcid) 20 mg PO DAILY [facility] Last Admin: 02/17/19 08:21 Dose: 20 mg Guaifenesin (Robitussin Sf) 200 mg PO Q4H PRN PRN Reason: Cough Hydralazine HCl (Apresoline) 10 mg SLOW IVP Q4H PRN PRN Reason: SBP > 180 and HR < 70 Piperacillin Sod/Tazobactam (Sod 3.375 gm/ Sodium Chloride) 100 mls @ 200 mls/ hr IVPB Q6HR [facility] Last Admin: 02/17/19 05:01 Dose: 100 mls Lactated Ringer's (Lactated Ringer's) 1,000 mls @ 100 mls/hr IV .Q10H [facility] Last Admin: 02/17/19 10:16 Dose: Not Given Vancomycin HCl 750 mg/ Sodium (Chloride) 250 mls @ 250 mls/hr IVPB 1000 [facility] Last Admin: 02/17/19 10:07 Dose: 250 mls Loratadine (Claritin) 10 mg PO DAILYPRN PRN PRN Reason: Sinus Symptoms Miscellaneous Medication (Pharmacy To Dose) 1 each IVPB PRN PRN PRN Reason: Pharmacy to dose Ondansetron HCl (Zofran Odt) 4 mg PO Q6H PRN PRN Reason: Nausea/Vomiting Ondansetron HCl (Zofran) 4 mg IVP Q6H PRN PRN Reason: Nausea/Vomiting Saccharomyces Boulardii (Florastor) 250 mg PO DAILY [facility] Last Admin: 02/17/19 08:21 Dose: 250 mg Senna/Docusate Sodium (Senokot S) 2 tab PO BID PRN PRN Reason: Constipation Sodium Bicarbonate (Bicarbonate, Sodium) 650 mg PO BID [facility] Last Admin: 02/17/19 08:21 Dose: 650 mg Sodium Chloride ([place] Nasal [place] 0.65%) 0 ml EA NARE QIDPRN PRN PRN Reason: Nasal Congestion Throat Lozenges (Cepastat Lozenges) 1 ori PO Q2H PRN PRN Reason: Sore Throat Zolpidem Tartrate (Ambien) 5 mg PO HSPRN PRN PRN Reason: Insomnia
--- NOTE | 2019-02-17 18:19 | PRG ---
DATE OF SERVICE: 02/17/2019 SUBJECTIVE: Overall, the patient feels better. She denies having any nausea, vomiting, or abdominal pain. There is no overt GI bleeding such as melena or hematochezia. She is still having multiple liquid watery bowel movements. PHYSICAL EXAMINATION: VITAL SIGNS: Temperature is 98.1, blood pressure 121/66, pulse of 65. GENERAL: She is alert, conversant, in no distress. HEENT: Anicteric sclerae. Oropharynx is clear and moist. NECK: Supple. CV: Normal S1 and S2. Regular rate and rhythm. CHEST: Breath sounds. ABDOMEN: Soft and nontender. No tympany. No distention. No tenderness to palpation. She has active bowel sounds. EXTREMITIES: No edema. LABORATORY DATA: Sodium 131, potassium 3.8, chloride 107, CO2 of 18, creatinine 2.01, BUN of 23. WBCs 3.9, hemoglobin 7.6, and platelet count of 145. All stool studies including culture and C diff came back negative. Blood culture negative at 48 x2, urine culture negative at 36 hours. ASSESSMENT: 1. Active ulcerative colitis. Outpatient sigmoidoscopy last week still showed active inflammation throughout the colon. Plan was to increasing Humira to weekly from every other week, which she has not started on. 2. Acute on chronic anemia, no signs of overt gastrointestinal bleed. 3. Hyponatremia, likely from severe dehydration on admission. The patient took a body and colon cleansing program on top of her chronic diarrhea. 4. Diarrhea, combination of bile acid diarrhea from previous right hemicolectomy and active ulcer colitis. 5. Acute on chronic renal injury, likely from prerenal azotemia. RECOMMENDATIONS: 1. We will start on IV methylprednisolone 40 mg q.8 while the patient is inpatient and outpatient prednisone taper until she starts on her weekly Humira. 2. Recommend discontinue her IV antibiotics as no evidence of sepsis or any other infectious source. 3. Continue to monitor her blood count from GI standpoint, transfuse if hemoglobin is less than 7. 4. We will restart on home colestipol 1 g p.o. b.i.d. for her bile acid diarrhea component. 5. We will follow. Job ID: [id number]
[2019-02-17] MEDS ORDERED: methylPREDNISolone Sod Succ/PF 125 MG/2 ML VIAL IVP SCH (22:00)
[2019-02-17] MEDS: methylPREDNISolone Sod Succ 40 MG VIAL IVP SCH (22:14)
[2019-02-18] MEDS: Albumin 25% 25 GM/100 ML BOT IVPB SCH (03:28)
[2019-02-18] MEDS: methylPREDNISolone Sod Succ 40 MG VIAL IVP SCH ×3 (05:10→21:57)
[2019-02-18 06:29] LABS: Anion Gap 15 mmol/L (10-20); BUN (Urea Nitrogen) 25 mg/dL (9.8-20.1); Calc. Creatinine Clearance 16 mL/min (70-130); Calcium 9.9 mg/dL (7.8-10.44); Carbon Dioxide 18 mmol/L (23-31); Chloride 108 mmol/L (98-107); Estimated GFR-MDRD 18; Glucose 140 mg/dL (80-115); Potassium 4.3 mmol/L (3.5-5.1); Sodium 137 mmol/L (136-145)
[2019-02-18 06:40] LABS: Mean Corpuscular HGB CONC 32.9 g/dL (32.0-36.0); Mean Corpuscular Hemoglobin 32.9 pg (27.0-31.0); Mean Corpuscular Volume 99.8 fL (78.0-98.0); Mean Platelet Volume 6.2 fL (7.4-10.4); Platelet Count 187 thou/uL (130-400); RBC Distribution Width 11.5 % (11.5-14.5); Red Blood Cell (RBC) Count 2.75 mill/uL (4.20-5.40); White Blood Cell (WBC) Count 2.6 thou/uL (4.8-10.8)
[2019-02-18] MEDS: Sodium Bicarbonate Tab 325 MG TAB PO SCH ×2 (07:53→19:43)
[2019-02-18] MEDS: Enoxaparin Sodium 30 MG/0.3 ML SYRINGE SC SCH (07:53)
[2019-02-18] MEDS: Famotidine 20 MG TAB PO SCH (07:53)
[2019-02-18] MEDS: Saccharomyces boulardii 250 MG CAP PO SCH (07:53)
--- NOTE | 2019-02-18 08:20 | PRG ---
DATE OF SERVICE: 02/18/2019 SUBJECTIVE: The patient feels bloated from IV fluid. Not much diarrhea overnight. No nausea, vomiting, or abdominal pain. No overt GI bleeding. Methylprednisolone started yesterday. No side effects. PHYSICAL EXAMINATION: VITAL SIGNS: Temperature is 97.8, blood pressure 137/69, and pulse of 66. GENERAL: She is alert, sitting up, in no distress. HEENT: Shows anicteric sclerae, but pale. Oropharynx is moist. NECK: Supple. CARDIOVASCULAR: Shows normal S1 and S2. Regular rate and rhythm. CHEST: Clear. No rhonchi or rales. ABDOMEN: Soft and nontender. She has active bowel sounds. No organomegaly. EXTREMITIES: Show no edema. LABORATORY DATA: Sodium 137, potassium 4.3, chloride 108, CO2 of 18, creatinine 2.62, and BUN of 25. WBCs 2.6, hemoglobin 9.0, and platelet count of 187. ASSESSMENT: 1. Active ulcerative colitis, recently seen on outpatient sigmoidoscopy. Outpatient plan was to increase the Humira 40 mg subcu to weekly, which she has not started on. 2. Acute on chronic anemia, now stabilized. No signs of gastrointestinal blood loss. 3. Hyponatremia, resolved. 4. Acute on chronic renal failure. RECOMMENDATIONS: 1. Overall stable from GI standpoint, continue with IV methylprednisolone 40 mg q.8 hours, will give tapering prednisone when discharged and start on her weekly Humira subcu. 2. IV antibiotics discontinued yesterday. 3. Continue colestipol 1 g p.o. b.i.d. for her bile acid diarrhea component from her previous right hemicolectomy. 4. We will follow. Job ID: [id number]
[2019-02-18 09:38] LABS: Band 18 % (5-11); Lymphocytes 28 % (21-51); MDiff Complete? YES; Neutrophil 54 % (42-75); Platelet Morphology Comment Appears Adequate; Polychromasia SLIGHT = 2-3 cells (100X) (0-2/hpf)
--- NOTE | 2019-02-18 09:48 | ULT ---
ULTRASOUND RETROPERITONEUM COMPLETE: (RENAL) DATE: 02/18/2019 HISTORY: 68-year-old female with chronic renal failure. FINDINGS: Right kidney: 9 x 4.5 x 5.5 cm. Left kidney: 11 x 5 x 4.5 cm. No hydronephrosis. Renal parenchyma is diffusely abnormally hyperechoic consistent with medical renal disease. Tiny amount of free fluid adjacent to both kidneys. No moderate sized or large cystic or solid renal lesion identified. Bladder volume 100 mL. Tiny focal nonspecific 0.5 x 0.8 cm nodular structure at posterior inner bladder wall projecting into the bladder lumen. Severe mural thickening and mural edema of the gallbladder incidentally noted. Wall thickness approxi mately 9 to 10 mm. IMPRESSION: 1) evidence for medical renal disease. 2) no hydronephrosis. 3) severe mural thickening and mural edema of the gallbladder. Possibilities include acalculous alba cystitis versus chronic cholecystitis. Consider nuclear medicine hepatobiliary scan if clinically appropriate. 4) nonspecific tiny nodule in bladder.
[2019-02-18 09:56] LABS: Bilirubin Negative (Negative); Blood, Urine Moderate (Negative); Glucose, Urine (Dipstick) Negative (Negative); Leukocyte Negative (Negative); Nitrite Negative (Negative); Protein, Urine (Dipstick) > or equal to 300 mg/dL (Neg-Trace); Urobilinogen 0.2 mg/dL (Less than 2)
[2019-02-18 10:01] LABS: Clarity Hazy (Clear)
[2019-02-18 10:02] LABS: Bacteria/HPF None Seen HPF (None Seen); RBC/HPF 0-3 HPF (0-3); Squamous Epithelial 0-3 HPF (0-3); WBC/HPF 0-3 HPF (0-3)
--- NOTE | 2019-02-18 10:14 | PRG ---
DATE OF SERVICE: 02/18/2019 SUBJECTIVE: Ms. Allison is a 68-year-old white female, who was seen by the Renal Service for her hyponatremia and acute kidney injury. Initially, we felt that she had a hypovolemic hyponatremia. She was given IV fluid and this helped to correct her serum sodium. However, in the last 2 days, renal function has been worsening. Initial urine exam suggests no evidence of acute tubular necrosis. However, the renal function continues to worsen. She is not on any nephrotoxic drugs. She continues to receive infusion of albumin and crystalloids. Currently, she is also being treated with IV steroids for underlying ulcerative colitis. No complaints of chest pain or shortness of breath. OBJECTIVE: VITAL SIGNS: Blood pressure is 153/72, heart rate 55, respiratory rate 18, temperature 97.4, and pulse ox 98%. GENERAL: Awake, alert, supine, comfortable, not in distress. SKIN: Adequate turgor. HEENT: Slightly pale conjunctivae. Anicteric sclerae. NECK: No neck mass. No carotid bruits. No JVD. CHEST: No deformities. LUNGS: Clear breath sounds. HEART: Normal sinus rhythm. No murmur. No gallops. No rubs. ABDOMEN: Globular, soft, and nontender. No masses. EXTREMITIES: No edema. No deformities. MEDICATIONS: Medications of February 18, 2019, was reviewed. LABORATORY DATA: Laboratories of February 18, 2019, showed sodium 137, potassium 4.3, chloride 108, carbon dioxide 18, BUN 25, creatinine 2.62, glucose 140, and calcium 9.9. White count 2.6, hemoglobin 9, platelet count 187,000. ASSESSMENT AND PLAN: 1. Acute kidney injury - unimproved in spite of volume repletion. The possibility of a possible acute tubular necrosis remains with this patient. Management is essentially supportive. 2. Ulcerative colitis - the patient currently on methylprednisolone. At one time, she was on Humira at the outpatient setting. GI is following. 3. Anemia, continue to observe. 4. Hyponatremia - secondary to hypovolemic hyponatremia - resolved. Continue supportive care. Continue current IV fluid. Recheck basic metabolic profile and CBC in a.m. ADDENDUM: Urinalysis and renal ultrasound were done today. Job ID: [id number]
[2019-02-18 10:45] LABS: Creatinine, Urine 105.33 mg/dL (47-110)
--- NOTE | 2019-02-18 14:44 | PDOC.PN ---
- Subjective Encounter Start Date: 02/18/19 Encounter Start Time: 09:00 Patient seen and examined. No new complaints. No overnight events - Objective Resuscitation Status - Order Detail: 02/15/19 07:09 Resuscitation Status Routine Resuscitation Status: FULL: Full Resuscitation MAR Reviewed: Yes Vital Signs & Weight: Vital Signs (12 hours) Temp Pulse Resp BP BP Pulse Ox 02/18/19 11:21 97.8 F 58 L 17 148/80 H 98 02/18/19 07:40 97.4 F L 55 L 18 153/72 H 98 02/18/19 03:39 97.8 F 66 18 137/69 96 Weight Admit Weight 114 lb 4.8 oz Weight 114 lb 4.8 oz I&O: 02/17/19 02/18/19 02/19/19 06:59 06:59 06:59 Intake Total 3600 2950 Balance 3600 2950 Result Diagrams: 02/19/19 05:22 02/19/19 05:22 Phys Exam - Physical Examination Constitutional: NAD HEENT: PERRLA, moist MMs, sclera anicteric Neck: no JVD, supple Respiratory: no wheezing, no rales, no rhonchi Cardiovascular: RRR, no significant murmur, no rub Gastrointestinal: soft, non-tender, no distention Musculoskeletal: no edema, pulses present Neurological: non-focal, normal sensation Psychiatric: normal affect, A&O x 3 Skin: no rash, normal turgor Dx/Plan (1) Acute worsening of stage 3 chronic kidney disease Code(s): N18.3 - CHRONIC KIDNEY DISEASE, STAGE 3 (MODERATE) Status: Acute (2) Colitis Code(s): K52.9 - NONINFECTIVE GASTROENTERITIS AND COLITIS, UNSPECIFIED Status : Acute (3) Fecal impaction Code(s): K56.41 - FECAL IMPACTION Status: Resolved (4) Hypomagnesemia Code(s): E83.42 - HYPOMAGNESEMIA Status: Resolved (5) Hyponatremia Code(s): E87.1 - HYPO-OSMOLALITY AND HYPONATREMIA Status: Acute (6) Sepsis Code(s): A41.9 - SEPSIS, UNSPECIFIED ORGANISM Status: Acute (7) Anemia, normocytic normochromic Code(s): D64.9 - ANEMIA, UNSPECIFIED Status: Chronic (8) H/O malignant neoplasm of colon Code(s): Z85.038 - PERSONAL HISTORY OF MALIGNANT NEOPLASM OF LARGE INTESTINE Status: Chronic (9) H/O ulcerative colitis Code(s): Z87.19 - PERSONAL HISTORY OF OTHER DISEASES OF THE DIGESTIVE SYSTEM Status: Chronic (10) Protein-calorie malnutrition, moderate Code(s): E44.0 - MODERATE PROTEIN-CALORIE MALNUTRITION Status: Chronic (11) Ileus Code(s): K56.7 - ILEUS, UNSPECIFIED Status: Resolved - Plan cont current plan of care * continue IV solumedrol * monitor renal function * nephrology and GI following * medication reviewed as below * symptomatic treatment. Review of Systems - Review of Systems ENT: negative: Ear Pain, Ear Discharge, Nose Pain, Nose Discharge, Nose Congestion, Mouth Pain, Mouth Swelling, Throat Pain, Throat Swelling, Other Respiratory: negative: Cough, Dry, Shortness of Breath, Hemoptysis, SOB with Excertion, Pleuritic Pain, Sputum, Wheezing Cardiovascular: negative: chest pain, palpitations, orthopnea, paroxysmal nocturnal dyspnea, edema, light headedness, other Gastrointestinal: negative: Nausea, Vomiting, Abdominal Pain, Diarrhea, Constipation, Melena, Hematochezia, Other Genitourinary: negative: Dysuria, Frequency, Incontinence, Hematuria, Retention , Other Musculoskeletal: negative: Neck Pain, Shoulder Pain, Arm Pain, Back Pain, Hand Pain, Leg Pain, Foot Pain, Other - Medications/Allergies Allergies/Adverse Reactions: Allergies Allergy/AdvReac Type Severity Reaction Status Date / Time pantoprazole sodium Allergy Intermediate Rash Verified 04/12/13 10:47 [From Protonix] corn [[place]] Allergy Verified 04/10/13 22:10 milk Allergy Verified 04/10/13 22:10 wheat Allergy Verified 04/10/13 22:10 Medications: Current Medications Acetaminophen (Tylenol) 650 mg PO Q4H PRN PRN Reason: Headache/Fever/Mild Pain (1-3) Hydrocodone Bitart/Acetaminophen ([place] 5/325) 1 tab PO Q4H PRN PRN Reason: Moderate Pain (4-6) Artificial Tears (Tears Naturale) 2 drop EA EYE PRN PRN PRN Reason: Dry Eyes Bisacodyl (Dulcolax) 10 mg [place] DAILYPRN PRN PRN Reason: Constipation Calcium Carbonate (Tums) 1,000 mg PO Q4H PRN PRN Reason: Heartburn or Indigestion Colestipol HCl (Colestid) 1 gm PO BID-[facility] Last Admin: 02/18/19 09:28 Dose: 1 gm Enoxaparin Sodium (Lovenox) 30 mg SC 0900 [facility] Last Admin: 02/18/19 07:53 Dose: 30 mg Famotidine (Pepcid) 20 mg PO DAILY [facility] Last Admin: 02/18/19 07:53 Dose: 20 mg Guaifenesin (Robitussin Sf) 200 mg PO Q4H PRN PRN Reason: Cough Hydralazine HCl (Apresoline) 10 mg SLOW IVP Q4H PRN PRN Reason: SBP > 180 and HR < 70 Lactated Ringer's (Lactated Ringer's) 1,000 mls @ 100 mls/hr IV .Q10H [facility] Last Admin: 02/17/19 22:14 Dose: 1,000 mls Loratadine (Claritin) 10 mg PO DAILYPRN PRN PRN Reason: Sinus Symptoms Methylprednisolone Sodium Succinate (Solu-Medrol) 40 mg IVP Q8HR [facility] Last Admin: 02/18/19 13:31 Dose: 40 mg Miscellaneous Medication (Pharmacy To Dose) 1 each IVPB PRN PRN PRN Reason: Pharmacy to dose Ondansetron HCl (Zofran Odt) 4 mg PO Q6H PRN PRN Reason: Nausea/Vomiting Ondansetron HCl (Zofran) 4 mg IVP Q6H PRN PRN Reason: Nausea/Vomiting Saccharomyces Boulardii (Florastor) 250 mg PO DAILY [facility] Last Admin: 02/18/19 07:53 Dose: 250 mg Senna/Docusate Sodium (Senokot S) 2 tab PO BID PRN PRN Reason: Constipation Sodium Bicarbonate (Bicarbonate, Sodium) 650 mg PO BID [facility] Last Admin: 02/18/19 07:53 Dose: 650 mg Sodium Chloride ([place] Nasal [place] 0.65%) 0 ml EA NARE QIDPRN PRN PRN Reason: Nasal Congestion Sterile Water (Bacteriostatic Water) 1 ml FS PRN PRN PRN Reason: RECONSTITUTION Throat Lozenges (Cepastat Lozenges) 1 ori PO Q2H PRN PRN Reason: Sore Throat Zolpidem Tartrate (Ambien) 5 mg PO HSPRN PRN PRN Reason: Insomnia
[2019-02-18] MEDS: Lactated Ringer's 1,000 ML IV SCH (15:29)
[2019-02-19] MEDS: Lactated Ringer's 1,000 ML IV SCH ×3 (05:07→20:50)
[2019-02-19] MEDS: methylPREDNISolone Sod Succ 40 MG VIAL IVP SCH ×3 (05:08→21:42)
[2019-02-19 05:38] LABS: #Lymphocytes 1.2 thou/uL (1.20-3.40); #Monocytes 0.5 thou/uL (0.11-0.59); #Neutrophils 5.7 thou/uL (1.40-6.50); %Basophils 0.1 % (0.0-1.0); %Eosinophils 0.2 % (0.0-10.0); %Lymphocytes 15.9 % (21.0-51.0); %Monocytes 6.5 % (0.0-10.0); %Neutrophils 77.3 % (42.0-75.0); Mean Corpuscular HGB CONC 31.7 g/dL (32.0-36.0); Mean Corpuscular Hemoglobin 31.8 pg (27.0-31.0); Mean Platelet Volume 6.2 fL (7.4-10.4); Platelet Count 174 thou/uL (130-400); RBC Distribution Width 11.5 % (11.5-14.5); White Blood Cell (WBC) Count 7.4 thou/uL (4.8-10.8)
[2019-02-19 05:57] LABS: Albumin 3.7 g/dL (3.4-4.8); Anion Gap 12 mmol/L (10-20); BUN (Urea Nitrogen) 37 mg/dL (9.8-20.1); BUN/Creatinine Ratio 13.91; Calc. Creatinine Clearance 16 mL/min (70-130); Calcium 8.8 mg/dL (7.8-10.44); Carbon Dioxide 19 mmol/L (23-31); Chloride 108 mmol/L (98-107); Estimated GFR-MDRD 18; Glucose 182 mg/dL (80-115); Phosphorus 3.8 mg/dL (2.3-4.7); Potassium 4.8 mmol/L (3.5-5.1); Sodium 134 mmol/L (136-145)
[2019-02-19] MEDS: Saccharomyces boulardii 250 MG CAP PO SCH (08:11)
[2019-02-19] MEDS: Sodium Bicarbonate Tab 325 MG TAB PO SCH ×2 (08:11→20:47)
[2019-02-19] MEDS: Famotidine 20 MG TAB PO SCH (08:12)
[2019-02-19] MEDS: Enoxaparin Sodium 30 MG/0.3 ML SYRINGE SC SCH (08:12)
--- NOTE | 2019-02-19 10:05 | PRG ---
DATE OF SERVICE: 02/19/2019 SERVICE: Renal Medicine. SUBJECTIVE: Ms. Allison is a 68-year-old white female, who was admitted for dehydration with concomitant hyponatremia and acute kidney injury. She was given volume repletion. In the last few days, renal function has been worsening, but this morning, it seems that the renal function has finally plateaued. Her hyponatremia also resolved with IV fluid. Review of her urine protein/creatinine ratio suggests 11 g of protein excretion. The renal ultrasound was also done, which showed no hydronephrosis, but there is increased hyperechoic finding of the kidneys to suggest chronic renal failure. No new complaints today. No chest pain or shortness of breath. She also receives steroids for her ulcerative colitis. OBJECTIVE: VITAL SIGNS: Blood pressure is noted at 131/63 with heart rate of 62, respiratory rate 16, pulse ox 98%, temperature 97.8. GENERAL: Noted to be awake, alert, sitting comfortable, not in distress. SKIN: Adequate turgor. HEENT: Slightly pale conjunctivae. Anicteric sclerae. NECK: No neck mass. No carotid bruits. No JVD. CHEST: No deformities. LUNGS: Clear breath sounds. HEART: Normal sinus rhythm. No murmur. No gallops. No rubs. ABDOMEN: Globular, soft, nontender. No masses. EXTREMITIES: No edema. No deformities. MEDICATIONS: Medications of February 19, 2019, were reviewed. LABORATORY DATA: Laboratories of February 19, 2019; white count 7.4, hemoglobin 8. Sodium 134, potassium 4.8, chloride 108, carbon dioxide 19, BUN 37, creatinine 2.66, GFR 18 mL/minute, glucose 182, calcium 8.8, phosphorus 3.8, albumin 3.7. C- reactive protein is 1.53. Urine protein 1518, urine creatinine 105, protein creatinine ratio is about 11. ASSESSMENT AND PLAN: 1. Acute kidney injury - I am still considering possible hemodynamically- mediated renal dysfunction. However, I could not completely rule out possible superimposed ATN. Currently management is supportive. No dialytic intervention needed. Continue IV hydration. 2. Nephrotic range proteinuria - I had long discussion with the patient. 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 With nephrotic range proteinuria, I was considering initiating immunosuppressive with this patient - Tacrolimus or cyclosporine as an outpatient. She will continue current dose of her steroids. I would suggest she will be discharged on prednisone at 40 mg tablet once a day. 3. Overall agree with current management. Job ID: [id number] MTDD
--- NOTE | 2019-02-19 11:26 | PDOC.PN ---
- Subjective Encounter Start Date: 02/19/19 Encounter Start Time: 09:00 Patient seen and examined. No new complaints. No overnight events - Objective Resuscitation Status - Order Detail: 02/15/19 07:09 Resuscitation Status Routine Resuscitation Status: FULL: Full Resuscitation MAR Reviewed: Yes Vital Signs & Weight: Vital Signs (12 hours) Temp Pulse Resp BP BP Pulse Ox 02/19/19 08:10 98 02/19/19 08:06 97.8 F 62 16 131/63 98 02/19/19 04:15 97.8 F 63 18 124/65 02/19/19 00:53 97.7 F 59 L 16 148/70 H 98 Weight Admit Weight 114 lb 4.8 oz Weight 114 lb 4.8 oz I&O: 02/18/19 02/19/19 02/20/19 06:59 06:59 06:59 Intake Total 2950 4040 Balance 2950 4040 Result Diagrams: 02/19/19 05:22 02/19/19 05:22 Phys Exam - Physical Examination Constitutional: NAD HEENT: PERRLA, moist MMs, sclera anicteric Neck: no JVD, supple Respiratory: no wheezing, no rales, no rhonchi Cardiovascular: RRR, no significant murmur, no rub Gastrointestinal: soft, non-tender, no distention, positive bowel sounds Musculoskeletal: no edema, pulses present Neurological: non-focal, normal sensation Lymphatic: no nodes Psychiatric: normal affect, A&O x 3 Skin: no rash, normal turgor Dx/Plan (1) Acute worsening of stage 3 chronic kidney disease Code(s): N18.3 - CHRONIC KIDNEY DISEASE, STAGE 3 (MODERATE) Status: Acute (2) Colitis Code(s): K52.9 - NONINFECTIVE GASTROENTERITIS AND COLITIS, UNSPECIFIED Status : Acute (3) Fecal impaction Code(s): K56.41 - FECAL IMPACTION Status: Resolved (4) Hypomagnesemia Code(s): E83.42 - HYPOMAGNESEMIA Status: Resolved (5) Hyponatremia Code(s): E87.1 - HYPO-OSMOLALITY AND HYPONATREMIA Status: Acute (6) Sepsis Code(s): A41.9 - SEPSIS, UNSPECIFIED ORGANISM Status: Acute (7) Anemia, normocytic normochromic Code(s): D64.9 - ANEMIA, UNSPECIFIED Status: Chronic (8) H/O malignant neoplasm of colon Code(s): Z85.038 - PERSONAL HISTORY OF MALIGNANT NEOPLASM OF LARGE INTESTINE Status: Chronic (9) H/O ulcerative colitis Code(s): Z87.19 - PERSONAL HISTORY OF OTHER DISEASES OF THE DIGESTIVE SYSTEM Status: Chronic (10) Protein-calorie malnutrition, moderate Code(s): E44.0 - MODERATE PROTEIN-CALORIE MALNUTRITION Status: Chronic (11) Ileus Code(s): K56.7 - ILEUS, UNSPECIFIED Status: Resolved (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 Review of Systems - Review of Systems ENT: negative: Ear Pain, Ear Discharge, Nose Pain, Nose Discharge, Nose Congestion, Mouth Pain, Mouth Swelling, Throat Pain, Throat Swelling, Other Respiratory: negative: Cough, Dry, Shortness of Breath, Hemoptysis, SOB with Excertion, Pleuritic Pain, Sputum, Wheezing Cardiovascular: negative: chest pain, palpitations, orthopnea, paroxysmal nocturnal dyspnea, edema, light headedness, other Gastrointestinal: negative: Nausea, Vomiting, Abdominal Pain, Diarrhea, Constipation, Melena, Hematochezia, Other Genitourinary: negative: Dysuria, Frequency, Incontinence, Hematuria, Retention , Other Musculoskeletal: negative: Neck Pain, Shoulder Pain, Arm Pain, Back Pain, Hand Pain, Leg Pain, Foot Pain, Other - Medications/Allergies Allergies/Adverse Reactions: Allergies Allergy/AdvReac Type Severity Reaction Status Date / Time pantoprazole sodium Allergy Intermediate Rash Verified 04/12/13 10:47 [From Protonix] corn [[place]y] Allergy Verified 04/10/13 22:10 milk Allergy Verified 04/10/13 22:10 wheat Allergy Verified 04/10/13 22:10 Medications: Current Medications Acetaminophen (Tylenol) 650 mg PO Q4H PRN PRN Reason: Headache/Fever/Mild Pain (1-3) Hydrocodone Bitart/Acetaminophen ([place] 5/325) 1 tab PO Q4H PRN PRN Reason: Moderate Pain (4-6) Artificial Tears (Tears Naturale) 2 drop EA EYE PRN PRN PRN Reason: Dry Eyes Bisacodyl (Dulcolax) 10 mg SC DAILYPRN PRN PRN Reason: Constipation Calcium Carbonate (Tums) 1,000 mg PO Q4H PRN PRN Reason: Heartburn or Indigestion Colestipol HCl (Colestid) 1 gm PO BID-[facility] Last Admin: 02/19/19 08:12 Dose: 1 gm Enoxaparin Sodium (Lovenox) 30 mg SC 0900 [facility] Last Admin: 02/19/19 08:12 Dose: 30 mg Famotidine (Pepcid) 20 mg PO DAILY [facility] Last Admin: 02/19/19 08:12 Dose: 20 mg Guaifenesin (Robitussin Sf) 200 mg PO Q4H PRN PRN Reason: Cough Hydralazine HCl (Apresoline) 10 mg SLOW IVP Q4H PRN PRN Reason: SBP > 180 and HR < 70 Lactated Ringer's (Lactated Ringer's) 1,000 mls @ 100 mls/hr IV .Q10H [facility] Last Admin: 02/19/19 05:07 Dose: 1,000 mls Loratadine (Claritin) 10 mg PO DAILYPRN PRN PRN Reason: Sinus Symptoms Methylprednisolone Sodium Succinate (Solu-Medrol) 40 mg IVP Q8HR [facility] Last Admin: 02/19/19 05:08 Dose: 40 mg Ondansetron HCl (Zofran Odt) 4 mg PO Q6H PRN PRN Reason: Nausea/Vomiting Ondansetron HCl (Zofran) 4 mg IVP Q6H PRN PRN Reason: Nausea/Vomiting Saccharomyces Boulardii (Florastor) 250 mg PO DAILY [facility] Last Admin: 02/19/19 08:11 Dose: 250 mg Senna/Docusate Sodium (Senokot S) 2 tab PO BID PRN PRN Reason: Constipation Sodium Bicarbonate (Bicarbonate, Sodium) 650 mg PO BID [facility] Last Admin: 02/19/19 08:11 Dose: 650 mg Sodium Chloride ([place]sey Nasal [place] 0.65%) 0 ml EA NARE QIDPRN PRN PRN Reason: Nasal Congestion Sterile Water (Bacteriostatic Water) 1 ml FS PRN PRN PRN Reason: RECONSTITUTION Throat Lozenges (Cepastat Lozenges) 1 ori PO Q2H PRN PRN Reason: Sore Throat Zolpidem Tartrate (Ambien) 5 mg PO HSPRN PRN PRN Reason: Insomnia
[2019-02-19] MEDS: Bacteriostatic Water 30 ML VIAL FS PRN (21:42)
[2019-02-20] MEDS: Bacteriostatic Water 30 ML VIAL FS PRN (05:50)
[2019-02-20] MEDS: methylPREDNISolone Sod Succ 40 MG VIAL IVP SCH (05:50)
[2019-02-20 08:51] LABS: #Lymphocytes 1.5 thou/uL (1.20-3.40); #Monocytes 0.2 thou/uL (0.11-0.59); #Neutrophils 10.5 thou/uL (1.40-6.50); %Eosinophils 0.2 % (0.0-10.0); %Lymphocytes 12.5 % (21.0-51.0); %Monocytes 1.9 % (0.0-10.0); %Neutrophils 85.4 % (42.0-75.0); Mean Corpuscular HGB CONC 30.2 g/dL (32.0-36.0); Mean Corpuscular Hemoglobin 30.6 pg (27.0-31.0); Mean Platelet Volume 6.3 fL (7.4-10.4); Platelet Count 240 thou/uL (130-400); RBC Distribution Width 11.8 % (11.5-14.5); Red Blood Cell (RBC) Count 2.95 mill/uL (4.20-5.40); White Blood Cell (WBC) Count 12.3 thou/uL (4.8-10.8)
--- NOTE | 2019-02-20 09:03 | PRG ---
DATE OF SERVICE: 02/19/2019 SUBJECTIVE: The patient feels well today without GI complaints. She is eating well. There is no nausea, vomiting, or abdominal pain. She only had two bowel movements a day with more consistency. OBJECTIVE: VITAL SIGNS: Temperature 98, blood pressure 148/71, pulse is 63. GENERAL: She is alert, conversant, in no distress. HEENT: Shows anicteric sclerae. Oropharynx is moist. CV: Shows normal S1 and S2. Regular rate and rhythm. CHEST: Shows breath sounds. ABDOMEN: Soft, nontender. No distention. No tympany. She has active bowel sounds. EXTREMITIES: Shows no edema. LABORATORY DATA: WBC is 7.4, hemoglobin 8.0, and platelet count of 174. Electrolytes are normal. Creatinine 2.66. C-reactive protein 1.53. ASSESSMENT: 1. Ulcerative colitis, clinically improving with IV methylprednisolone. She had her shot of Humira 40 mg subcu this morning from home. 2. Acute on chronic anemia, no evidence of GI bleed. 3. Hyponatremia, resolved. 4. Acute on chronic renal failure. RECOMMENDATIONS: 1. Overall doing well from GI standpoint. Continue with IV methylprednisolone while inpatient. We will discharge to home on prednisone 40 mg daily and will taper in conjunction with renal plan. 2. Continue colestipol 1 g p.o. b.i.d. for bile acid diarrhea, component from her previous right hemicolectomy. 3. The patient can be discharged to home from GI standpoint any time. Weekly Humira subcutaneous injection has been arranged. Job ID: [id number]
[2019-02-20 09:05] LABS: Albumin 3.8 g/dL (3.4-4.8); Anion Gap 10 mmol/L (10-20); BUN (Urea Nitrogen) 47 mg/dL (9.8-20.1); BUN/Creatinine Ratio 18.58; Calc. Creatinine Clearance 17 mL/min (70-130); Calcium 9.5 mg/dL (7.8-10.44); Carbon Dioxide 22 mmol/L (23-31); Chloride 110 mmol/L (98-107); Estimated GFR-MDRD 19; Glucose 213 mg/dL (80-115); Phosphorus 3.5 mg/dL (2.3-4.7); Potassium 4.5 mmol/L (3.5-5.1); Sodium 137 mmol/L (136-145)
[2019-02-20] MEDS: Famotidine 20 MG TAB PO SCH (09:25)
[2019-02-20] MEDS: Enoxaparin Sodium 30 MG/0.3 ML SYRINGE SC SCH (09:27)
[2019-02-20] MEDS: Saccharomyces boulardii 250 MG CAP PO SCH (09:27)
[2019-02-20] MEDS: Sodium Bicarbonate Tab 325 MG TAB PO SCH (09:27)
--- NOTE | 2019-02-20 09:27 | PRG ---
DATE OF SERVICE: 02/20/2019 SERVICE: Renal Medicine. SUBJECTIVE: Ms. Allison is a 68-year-old white female, seen by the Renal Service for her acute kidney injury on top of her chronic renal failure. She had a sustained hemodynamically-mediated renal dysfunction, although a possibility of ATN remains. Creatinine has been stabilizing. Please note, current creatinine is still pending. I did review her biopsy back in 2005 and she has a biopsy-proven membranous nephropathy. No other complaints today. She feels better. She continues to receive IV steroids for her ulcerative colitis. The patient voices no new complaints. OBJECTIVE: VITAL SIGNS: Blood pressure 151/75, heart rate 81, respiratory rate 16, temperature 98.2, pulse ox 99%. GENERAL: Awake, alert, comfortable, not in overt distress. SKIN: Adequate turgor. HEENT: She has pinkish conjunctivae. Anicteric sclerae. NECK: No neck mass. No carotid bruits. No JVD. CHEST: No deformities. LUNGS: Clear breath sounds. HEART: Normal sinus rhythm. No murmur. No gallops. No rubs. ABDOMEN: Globular, soft, nontender. No masses. EXTREMITIES: No edema. No deformities. MEDICATIONS: Medications of February 20, 2019, reviewed. LABORATORY DATA: Laboratories of February 20, 2019; sodium 137, potassium 4.5, chloride 110, carbon dioxide 22, BUN is 47, creatinine 2.53, glucose 213, calcium 9.5, phosphorus 3.5, albumin 3.8. ASSESSMENT AND PLAN: 1. Acute kidney injury on top of chronic renal failure - I suspect a hemodynamically-mediated dysfunction. Renal function continues to improve. Most recent creatinine is 2.53. 2. No indication for any dialytic intervention. 3. Hyponatremia secondary to hypovolemic hyponatremia, much improved. 4. Nephrotic-range proteinuria secondary to biopsy-proven membranous nephropathy. I did discuss at length with the patient that we need to consider her being started on either tacrolimus or cyclosporine. She will think about it. She will call my office after discharge. 5. Agree to discharge the patient. Job ID: [id number]
[2019-02-20] MEDS: Lactated Ringer's 1,000 ML IV SCH (09:32)
[2019-02-20 11:46] VITALS: BP 141/82; TEMP 98.5
--- NOTE | 2019-02-21 11:15 | DIS ---
DATE OF ADMISSION: 02/14/2019 DATE OF DISCHARGE: 02/20/2019 PRIMARY CARE PHYSICIAN: Dr. Luis De La Garza. DISCHARGE DISPOSITION: Home. PRIMARY DISCHARGE DIAGNOSES: 1. Acute on chronic kidney failure. 2. Baseline chronic kidney disease stage 3. 3. Colitis due to ulcerative colitis flare-up. 4. Hyponatremia. 5. Metabolic acidosis. 6. Nephrotic range proteinuria. SECONDARY DISCHARGE DIAGNOSES: 1. Hypomagnesemia, resolved. 2. Fecal impaction, resolved. 3. Protein-calorie malnutrition. 4. History of ulcerative colitis. 5. History of malignant neoplasm of colon. 6. Normocytic normochromic anemia. 7. Membranous glomerulonephritis. 8. Chronic kidney disease stage 3. PRIMARY PROCEDURE/OPERATION: None. RADIOLOGICAL INVESTIGATIONS: The patient had abdomen and pelvis CT scan on admission showed finding suspicious for dilated small-bowel consistent with ileus and there was colitis finding. There was also a report of fecal impaction. Chest x-ray was unremarkable. Renal ultrasound was unremarkable. SIGNIFICANT LABORATORY DATA: Hemoglobin 9.0, WBC 12.3, platelet 240. Sodium 137, creatinine 2.53. Protein-creatinine ratio was very high. Urinalysis showing proteinuria. DISCHARGE MEDICATIONS: The patient is discharged home on, 1. Prednisone tapering doses 40 mg p.o. daily for 1 week, then 30 mg p.o. daily for 1 week, and then 20 mg p.o. daily for 1 week, and then 10 mg p.o. daily. 2. Humira 40 mg subcu every two weeks. 3. Colestid 1 g p.o. b.i.d. 4. Pepcid 20 mg daily. 5. Florastor 250 mg daily. 6. Sodium bicarbonate 325 mg p.o. b.i.d. CONTRAINDICATION: None. CODE STATUS: Full code. INPATIENT CONSULTANTS: 1. Dr. Miller, GI, was following while in hospital. 2. Dr. Harrison was following for Nephrology. TEST RESULTS PENDING ON DISCHARGE: None. ALLERGIES: PANTOPRAZOLE. DISCHARGE PLAN: Posthospital, the patient will follow up with primary care physician as well as primary retail coordinator, Dr. Miller and Dr. Harrison as instructed. HOSPITAL COURSE: A 68-year-old female, who was admitted by me. Please see my HPI for further details. On admission, the patient was having finding suggestive of colitis on CT scan and retrospectively, we found that the patient has ulcerative colitis flare-up. We did stool for infection workup, that came back negative. The patient was also having acute on chronic kidney failure and that was related with worsening of membranous glomerulonephritis. The patient's renal function was stabilized. She was given IV fluid while in the hospital. She has metabolic acidosis and that is why we started sodium bicarbonate during this admission. The patient has nephrotic range of proteinuria and the patient's field sales specialist, Dr. Harrison is planning to start specific therapy after discharge. Overall, the patient was doing well before discharge and Nephrology and Gastroenterology had cleared her for discharge as well. The patient is seen and examined at bedside today. Please see my progress note from that day. Job ID: [id number]
== END 2019-02-20 12:30 | disposition home or self-care (01) | DRG 871 ==
LOC: ERS 18:58 → SURG A 20:44
PROVIDERS: ADMIT Hospitalist; ATTEND Hospitalist
DX: A41.9 Sepsis, unspecified organism (principal); E86.0 Dehydration; N17.0 Acute kidney failure with tubular necrosis; K51.90 Ulcerative colitis, unspecified, without complications; E87.1 Hypo-osmolality and hyponatremia; E44.0 Moderate protein-calorie malnutrition; Z68.1 Body mass index [BMI] 19.9 or less, adult; K56.7 Ileus, unspecified; E87.2 Acidosis; N05.5 Unspecified nephritic syndrome with diffuse mesangiocapillary glomerulonephritis; N18.3 Chronic kidney disease, stage 3 (moderate); K56.41 Fecal impaction; D63.1 Anemia in chronic kidney disease; E83.42 Hypomagnesemia; Z91.018 Allergy to other foods; Z88.8 Allergy status to other drugs, medicaments and biological substances; Z91.011 Allergy to milk products
CPT/HCPCS: 36415; 71045; 74176; 76770; 80048; 80053; 80069; 80202; 81001; 81003; 81015; 82330; 82533; 82570; 82803; 83735; 83930; 83935; 84100; 84156; 84300; 84443; 84550; 85025; 86140; 87040; 87045; 87046; 87086; 87324; 87328; 87329; 87449; 87899; 90471; 90670; 96365; 96366; 96368; G0009; J0696; J1650; J2543; J2920; J3370; J3480; J3490; J7050; P9047

== ENCOUNTER 2019-11-04 10:17 | Emergency (ER) | payer MEDICARE, SELFPAY ==
[2019-11-04 11:05] LABS: #Lymphocytes 0.7 thou/uL (1.20-3.40); #Monocytes 0.5 thou/uL (0.11-0.59); #Neutrophils 10.1 thou/uL (1.40-6.50); %Basophils 0.1 % (0.0-1.0); %Eosinophils 0.1 % (0.0-10.0); %Lymphocytes 5.8 % (21.0-51.0); %Monocytes 4.2 % (0.0-10.0); %Neutrophils 89.8 % (42.0-75.0); Hemoglobin 13.3 g/dL (12.0-16.0); Mean Corpuscular HGB CONC 33.1 g/dL (32.0-36.0); Mean Corpuscular Hemoglobin 33.1 pg (27.0-31.0); Mean Platelet Volume 5.9 fL (7.4-10.4); Platelet Count 355 thou/uL (130-400); RBC Distribution Width 11.3 % (11.5-14.5); Red Blood Cell (RBC) Count 4.01 mill/uL (4.20-5.40); White Blood Cell (WBC) Count 11.3 thou/uL (4.8-10.8)
[2019-11-04 11:25] LABS: ALT (SGPT) 13 U/L (8-55); AST (SGOT) 17 U/L (5-34); Albumin 3.3 g/dL (3.4-4.8); Alkaline Phosphatase 103 U/L (40-110); Anion Gap 11 mmol/L (10-20); BUN (Urea Nitrogen) 48 mg/dL (9.8-20.1); Bilirubin, Total 0.2 mg/dL (0.2-1.2); CRP (Inflammatory) 3.85 mg/dL (= or < 0.5); Calc. Creatinine Clearance 0 mL/min (70-130); Calcium 9.3 mg/dL (7.8-10.44); Carbon Dioxide 23 mmol/L (23-31); Chloride 96 mmol/L (98-107); Estimated GFR-MDRD 17; Globulin 3.5 g/dL (2.4-3.5); Glucose 111 mg/dL (83-110); Magnesium 2.6 mg/dL (1.6-2.6); Potassium 4.2 mmol/L (3.5-5.1); Protein, Total 6.8 g/dL (6.0-8.3); Sodium 126 mmol/L (136-145)
== END 2019-11-04 12:05 | disposition home or self-care (01) ==
LOC: ERS 10:17
DX: M79.89 Other specified soft tissue disorders (principal); R23.3 Spontaneous ecchymoses; E87.1 Hypo-osmolality and hyponatremia; N18.9 Chronic kidney disease, unspecified
CPT/HCPCS: 80053; 83735; 83880; 84484; 85025; 85652; 86140; 99283

== ENCOUNTER 2020-01-06 09:16 | Outpatient (CLI) | payer MEDICARE ==
--- NOTE | 2020-01-06 11:52 | BD ---
DEXA BONE DENSITY EXAM: COMPARISON: 06/13/2005. HISTORY: A 69-year-old postmenopausal female for screening. FINDINGS: Lumbar Spine: BMD (g/cm2) L1 0.716 T-Score: -2.5 L2 0.759 T-Score: -2.4 L3 0.829 T-Score: -2.3 L4 0.837 T-Score: -2.0 L1-L4 0.789 T-Score: -2.3 Femoral Neck: 0.599 T-Score: -2.2 Total Femur: 0.703 T-Score: -2.0 Impression: Osteopenia. This patient has a 10-year WHO fracture risk of a major osteoporotic fracture of 11% and of a hip fracture of 2.9%. POS: [facility]
== END 2020-01-06 09:17 | disposition home or self-care (01) ==
LOC: BICMAMMO 09:16
PROVIDERS: ATTEND Internal Medicine Rheumatology
DX: M81.0 Age-related osteoporosis without current pathological fracture (principal); M85.89 Other specified disorders of bone density and structure, multiple sites
CPT/HCPCS: 77080

== ENCOUNTER 2020-04-29 08:25 | Outpatient (CLI) | payer MEDICARE ==
--- NOTE | 2020-05-05 10:41 | MMO ---
Bilateral MAMMO Bilat Screen [facility]. CLINICAL HISTORY: Patient is 69 years old and is seen for screening. The patient has no family history of breast cancer. The patient has a history of colon cancer more than 10 years ago. VIEWS: The views performed were: bilateral craniocaudal with tomosynthesis and bilateral mediolateral oblique with tomosynthesis. FILMS COMPARED: The present examination has been compared to prior imaging studies performed at [facility] on 01/22/2019, at [facility] on 07/19/2016, and at [facility] on 09/12/2007 and 02/17/2009. This study has been interpreted with the assistance of computer-aided detection. MAMMOGRAM FINDINGS: The breasts are heterogeneously dense, which could obscure a lesion on mammography. There are no suspicious masses, suspicious calcifications, or new areas of architectural distortion. IMPRESSION: THERE IS NO MAMMOGRAPHIC EVIDENCE OF MALIGNANCY. A ROUTINE FOLLOW-UP MAMMOGRAM IN 1 YEAR IS RECOMMENDED. THE RESULTS OF THIS EXAM WERE SENT TO THE PATIENT. ACR BI-RADS Category 1 - Negative MAMMOGRAPHY NOTE: 1. A negative mammogram report should not delay a biopsy if a dominant of clinically suspicious mass is present. 2. Approximately 10% to 15% of breast cancers are not detected by mammography. 3. Adenosis and dense breasts may obscure an underlying neoplasm. Reported by: KELTON SCHULZ MD Electonically Signed: [id number]
== END 2020-04-29 08:26 | disposition home or self-care (01) ==
LOC: BICMAMMO 08:25
PROVIDERS: ATTEND Internal Medicine Hematology & Oncology
DX: Z12.31 Encounter for screening mammogram for malignant neoplasm of breast (principal); Z85.038 Personal history of other malignant neoplasm of large intestine
CPT/HCPCS: 77063; 77067

== ENCOUNTER 2020-11-26 05:50 | Inpatient (IN) | payer MEDICARE ==
[2020-11-26] MEDS ORDERED: Ondansetron PF 4 MG/2 ML Vial ONE ×2 (06:31→14:57)
[2020-11-26 07:07] LABS: #Basophils 0.1 thou/uL (0.0-0.2); #Monocytes 0.6 thou/uL (0.11-0.59); %Basophils 0.8 % (0.0-1.0); %Eosinophils 0.4 % (0.0-10.0); %Monocytes 8.8 % (0.0-10.0); Hemoglobin 10.9 g/dL (12.0-16.0); Mean Corpuscular HGB CONC 34.6 g/dL (32.0-36.0); Mean Corpuscular Hemoglobin 33.7 pg (27.0-31.0); Mean Corpuscular Volume 97.2 fL (78.0-98.0); Mean Platelet Volume 5.6 fL (7.4-10.4); Platelet Count 441 thou/uL (130-400); RBC Distribution Width 12.1 % (11.5-14.5); Red Blood Cell (RBC) Count 3.24 mill/uL (4.20-5.40); White Blood Cell (WBC) Count 6.7 thou/uL (4.8-10.8)
[2020-11-26 07:24] LABS: ALT (SGPT) 69 U/L (8-55); AST (SGOT) 30 U/L (5-34); Albumin 2.9 g/dL (3.4-4.8); Alkaline Phosphatase 646 U/L (40-110); Anion Gap 16 mmol/L (10-20); BUN (Urea Nitrogen) 49 mg/dL (9.8-20.1); Bilirubin, Total 0.3 mg/dL (0.2-1.2); Calc. Creatinine Clearance 0 mL/min (70-130); Calcium 8.7 mg/dL (7.8-10.44); Carbon Dioxide 19 mmol/L (23-31); Chloride 97 mmol/L (98-107); Globulin 3.2 g/dL (2.4-3.5); Glucose 98 mg/dL (83-110); Lipase 49 U/L (8-78); Potassium 3.8 mmol/L (3.5-5.1); Protein, Total 6.1 g/dL (5.8-8.1); Sodium 128 mmol/L (136-145)
[2020-11-26 08:22] LABS: Bacteria/HPF None Seen HPF (None Seen); Bilirubin Negative (Negative); Blood, Urine Negative (Negative); Clarity Clear (Clear); Glucose, Urine (Dipstick) Normal (Negative); Ketone, Urine Negative (Negative); Leukocyte Negative Leu/uL (Negative); Nitrite Negative (Negative); Protein, Urine (Dipstick) 600 mg/dL (Neg-Trace); RBC/HPF 0-3 HPF (0-3); Specific Gravity, Urine 1.011 (1.002-1.036); Squamous Epithelial None Seen HPF (0-3); Urobilinogen Normal mg/dL (Less than 2); WBC/HPF 0-3 HPF (0-3)
[2020-11-26] MEDS ORDERED: Ondansetron PF 4 MG/2 ML Vial IVP PRN (10:26)
[2020-11-26] MEDS ORDERED: Acetaminophen 325 MG TAB PO PRN (10:26)
[2020-11-26] MEDS ORDERED: Morphine 2 MG/ML VIAL SLOW IVP PRN (10:28)
[2020-11-26 11:11] LABS: Anion Gap 17 mmol/L (10-20); BUN (Urea Nitrogen) 48 mg/dL (9.8-20.1); Calc. Creatinine Clearance 0 mL/min (70-130); Calcium 8.8 mg/dL (7.8-10.44); Carbon Dioxide 18 mmol/L (23-31); Chloride 97 mmol/L (98-107); Glucose 90 mg/dL (83-110); Potassium 3.8 mmol/L (3.5-5.1); Sodium 128 mmol/L (136-145)
[2020-11-26 11:17] LABS: SARS-CoV-2 NAA Rapid Test Not Detected (NotDetected)
[2020-11-26] MEDS ORDERED: Albumin 25% 25 GM/100 ML BOT IVPB SCH (12:00)
[2020-11-26] MEDS ORDERED: Fentanyl 100 MCG/2 ML VIAL ONE (14:44)
[2020-11-26] MEDS ORDERED: Lidocaine 2% Jelly 5 ML TUBE ONE (14:44)
[2020-11-26] MEDS ORDERED: PHENYLEPHRINE-NS 100 MCG/ML 10 ML SYRINGE ONE (14:57)
[2020-11-26] MEDS ORDERED: PROPOFOL 200 MG/20 ML VIAL ONE (14:57)
[2020-11-26] MEDS ORDERED: Lidocaine 1% PF 5 ML VIAL ONE (14:57)
[2020-11-26] MEDS ORDERED: Dexamethasone 20 MG/5 ML VIAL ONE (14:57)
[2020-11-26] MEDS ORDERED: Succinylcholine 200 MG/10 ml SYRINGE FS ONE (14:57)
[2020-11-26 17:42] VITALS: BMI 18.1
[2020-11-26] MEDS: Sodium Chloride 0.9% 1,000 ML IV SCH (18:03)
[2020-11-26] MEDS: Albumin 25% 25 GM/100 ML BOT IVPB SCH (18:04)
[2020-11-26] MEDS: Famotidine/PF 20 mg/2ml Vial SLOW IVP SCH (20:38)
[2020-11-27] MEDS: Albumin 25% 25 GM/100 ML BOT IVPB SCH ×3 (00:27→12:35)
[2020-11-27] MEDS: Sodium Chloride 0.9% 1,000 ML IV SCH ×2 (04:26→17:54)
[2020-11-27 05:34] LABS: #Lymphocytes 0.6 thou/uL (1.20-3.40); #Monocytes 0.1 thou/uL (0.11-0.59); #Neutrophils 4.4 thou/uL (1.40-6.50); %Basophils 0.9 % (0.0-1.0); %Eosinophils 0.2 % (0.0-10.0); %Lymphocytes 12.3 % (21.0-51.0); %Monocytes 2.6 % (0.0-10.0); %Neutrophils 84.1 % (42.0-75.0); Mean Corpuscular HGB CONC 32.8 g/dL (32.0-36.0); Mean Corpuscular Hemoglobin 32.5 pg (27.0-31.0); Mean Platelet Volume 5.6 fL (7.4-10.4); Platelet Count 437 thou/uL (130-400); RBC Distribution Width 12.2 % (11.5-14.5); Red Blood Cell (RBC) Count 3.06 mill/uL (4.20-5.40); White Blood Cell (WBC) Count 5.2 thou/uL (4.8-10.8)
[2020-11-27 05:52] LABS: ALT (SGPT) 43 U/L (8-55); AST (SGOT) 18 U/L (5-34); Albumin 3.5 g/dL (3.4-4.8); Alkaline Phosphatase 488 U/L (40-110); Anion Gap 20 mmol/L (10-20); BUN (Urea Nitrogen) 48 mg/dL (9.8-20.1); Bilirubin, Total 0.3 mg/dL (0.2-1.2); Calc. Creatinine Clearance 14 mL/min (70-130); Calcium 8.7 mg/dL (7.8-10.44); Carbon Dioxide 16 mmol/L (23-31); Chloride 107 mmol/L (98-107); Globulin 2.8 g/dL (2.4-3.5); Glucose 105 mg/dL (83-110); Potassium 4.1 mmol/L (3.5-5.1); Protein, Total 6.3 g/dL (5.8-8.1); Sodium 139 mmol/L (136-145)
[2020-11-27] MEDS ORDERED: Morphine 2 MG/ML VIAL SLOW IVP PRN (08:34)
[2020-11-27] MEDS ORDERED: Morphine 4 MG/ML VIAL SLOW IVP PRN (08:34)
[2020-11-27] MEDS ORDERED: cefTRIAXone\\ROCEPHIN 1 GM in Sodium Chloride 0.9% 100 ML IVPB SCH (08:45)
[2020-11-27] MEDS ORDERED: Enoxaparin Sodium 40 MG/0.4 ML SYRINGE SC SCH (09:00)
[2020-11-27] MEDS: Famotidine/PF 20 mg/2ml Vial SLOW IVP SCH (09:42)
[2020-11-28] MEDS: Sodium Chloride 0.9% 1,000 ML IV SCH ×2 (00:25→12:20)
[2020-11-28 05:37] LABS: #Basophils 0.1 thou/uL (0.0-0.2); #Lymphocytes 1.6 thou/uL (1.20-3.40); #Monocytes 0.7 thou/uL (0.11-0.59); #Neutrophils 4.7 thou/uL (1.40-6.50); %Basophils 0.8 % (0.0-1.0); %Eosinophils 0.4 % (0.0-10.0); %Lymphocytes 22.8 % (21.0-51.0); %Monocytes 10.2 % (0.0-10.0); %Neutrophils 65.8 % (42.0-75.0); Hemoglobin 8.4 g/dL (12.0-16.0); Mean Corpuscular HGB CONC 31.6 g/dL (32.0-36.0); Mean Corpuscular Hemoglobin 31.6 pg (27.0-31.0); Mean Platelet Volume 5.5 fL (7.4-10.4); Platelet Count 418 thou/uL (130-400); RBC Distribution Width 12.3 % (11.5-14.5); Red Blood Cell (RBC) Count 2.64 mill/uL (4.20-5.40); White Blood Cell (WBC) Count 7.2 thou/uL (4.8-10.8)
[2020-11-28 05:59] LABS: Anion Gap 15 mmol/L (10-20); BUN (Urea Nitrogen) 47 mg/dL (9.8-20.1); Calc. Creatinine Clearance 16 mL/min (70-130); Calcium 8.9 mg/dL (7.8-10.44); Carbon Dioxide 17 mmol/L (23-31); Chloride 112 mmol/L (98-107); Glucose 68 mg/dL (83-110); Potassium 3.4 mmol/L (3.5-5.1); Sodium 141 mmol/L (136-145)
[2020-11-28] MEDS: Enoxaparin Sodium 30 MG/0.3 ML SYRINGE SC SCH (08:33)
[2020-11-28] MEDS: Famotidine/PF 20 mg/2ml Vial SLOW IVP SCH (08:33)
[2020-11-28] MEDS: NS 0.9% w/ 20 MEQ KCL 1,000 ML/1,000 ML BAG IV SCH ×2 (12:09→22:01)
[2020-11-28] MEDS: hydrALAZINE 20 MG/ML VIAL SLOW IVP PRN ×2 (12:12→18:11)
[2020-11-28] MEDS ORDERED: MD-Gastroview 120 ML BOT ONE (12:57)
[2020-11-29 06:24] LABS: #Eosinphils 0.1 thou/uL (0.0-0.7); #Lymphocytes 1.2 thou/uL (1.20-3.40); #Monocytes 0.5 thou/uL (0.11-0.59); #Neutrophils 3.2 thou/uL (1.40-6.50); %Basophils 0.3 % (0.0-1.0); %Eosinophils 1.1 % (0.0-10.0); %Monocytes 10.7 % (0.0-10.0); %Neutrophils 63.9 % (42.0-75.0); Hemoglobin 8.1 g/dL (12.0-16.0); Mean Corpuscular HGB CONC 32.2 g/dL (32.0-36.0); Mean Corpuscular Hemoglobin 32.3 pg (27.0-31.0); Mean Platelet Volume 5.5 fL (7.4-10.4); Platelet Count 379 thou/uL (130-400); RBC Distribution Width 12.3 % (11.5-14.5)
[2020-11-29 06:51] LABS: Anion Gap 10 mmol/L (10-20); BUN (Urea Nitrogen) 38 mg/dL (9.8-20.1); Calc. Creatinine Clearance 17 mL/min (70-130); Calcium 8.3 mg/dL (7.8-10.44); Carbon Dioxide 20 mmol/L (23-31); Chloride 113 mmol/L (98-107); Glucose 90 mg/dL (83-110); Potassium 4.1 mmol/L (3.5-5.1); Sodium 139 mmol/L (136-145)
[2020-11-29] MEDS: Famotidine/PF 20 mg/2ml Vial SLOW IVP SCH (08:48)
[2020-11-29] MEDS: Enoxaparin Sodium 30 MG/0.3 ML SYRINGE SC SCH (08:48)
[2020-11-29] MEDS: NS 0.9% w/ 20 MEQ KCL 1,000 ML/1,000 ML BAG IV SCH ×2 (08:48→17:50)
[2020-11-29] MEDS ORDERED: EPOETIN ALFA-EPBX (ESRD) 4,000 UNIT/ML VIAL SC SCH (09:00)
[2020-11-29] MEDS: hydrALAZINE 20 MG/ML VIAL SLOW IVP PRN ×2 (12:58→19:49)
[2020-11-29] MEDS: Ferrous Sulfate 325 MG TAB PO SCH (16:30)
[2020-11-30] MEDS: hydrALAZINE 20 MG/ML VIAL SLOW IVP PRN ×4 (00:04→18:05)
[2020-11-30] MEDS: NS 0.9% w/ 20 MEQ KCL 1,000 ML/1,000 ML BAG IV SCH ×2 (04:42→17:21)
[2020-11-30 06:04] LABS: #Eosinphils 0.1 thou/uL (0.0-0.7); #Lymphocytes 1.8 thou/uL (1.20-3.40); #Monocytes 0.5 thou/uL (0.11-0.59); #Neutrophils 3.8 thou/uL (1.40-6.50); %Basophils 0.6 % (0.0-1.0); %Eosinophils 1.5 % (0.0-10.0); %Lymphocytes 29.2 % (21.0-51.0); %Monocytes 8.1 % (0.0-10.0); %Neutrophils 60.6 % (42.0-75.0); Hemoglobin 9.3 g/dL (12.0-16.0); Mean Corpuscular HGB CONC 31.1 g/dL (32.0-36.0); Mean Corpuscular Hemoglobin 31.6 pg (27.0-31.0); Mean Platelet Volume 5.6 fL (7.4-10.4); Platelet Count 447 thou/uL (130-400); RBC Distribution Width 12.4 % (11.5-14.5); Red Blood Cell (RBC) Count 2.93 mill/uL (4.20-5.40); White Blood Cell (WBC) Count 6.3 thou/uL (4.8-10.8)
[2020-11-30 06:27] LABS: Anion Gap 11 mmol/L (10-20); BUN (Urea Nitrogen) 28 mg/dL (9.8-20.1); Calc. Creatinine Clearance 18 mL/min (70-130); Carbon Dioxide 17 mmol/L (23-31); Chloride 111 mmol/L (98-107); Potassium 4.4 mmol/L (3.5-5.1); Sodium 135 mmol/L (136-145)
[2020-11-30 06:28] LABS: Calcium 8.4 mg/dL (7.8-10.44); Glucose 88 mg/dL (83-110)
[2020-11-30] MEDS: Enoxaparin Sodium 30 MG/0.3 ML SYRINGE SC SCH (09:23)
[2020-11-30] MEDS: cloNIDine 0.1 MG TAB PO SCH ×2 (09:24→20:50)
[2020-11-30] MEDS: Famotidine/PF 20 mg/2ml Vial SLOW IVP SCH (09:24)
[2020-11-30] MEDS: Ferrous Sulfate 325 MG TAB PO SCH ×2 (09:24→17:21)
[2020-12-01] MEDS: NS 0.9% w/ 20 MEQ KCL 1,000 ML/1,000 ML BAG IV SCH ×2 (02:16→12:28)
[2020-12-01 06:10] LABS: Anion Gap 10 mmol/L (10-20); BUN (Urea Nitrogen) 27 mg/dL (9.8-20.1); Calc. Creatinine Clearance 20 mL/min (70-130); Calcium 7.9 mg/dL (7.8-10.44); Carbon Dioxide 17 mmol/L (23-31); Chloride 113 mmol/L (98-107); Glucose 88 mg/dL (83-110); Sodium 135 mmol/L (136-145)
[2020-12-01 06:15] LABS: #Lymphocytes 1.2 thou/uL (1.20-3.40); #Monocytes 0.3 thou/uL (0.11-0.59); #Neutrophils 1.7 thou/uL (1.40-6.50); %Basophils 0.1 % (0.0-1.0); %Eosinophils 1.1 % (0.0-10.0); %Lymphocytes 38.1 % (21.0-51.0); %Monocytes 8.6 % (0.0-10.0); %Neutrophils 52.1 % (42.0-75.0); Hemoglobin 8.1 g/dL (12.0-16.0); Mean Corpuscular HGB CONC 32.7 g/dL (32.0-36.0); Mean Corpuscular Hemoglobin 33.2 pg (27.0-31.0); Mean Platelet Volume 5.6 fL (7.4-10.4); Platelet Count 324 thou/uL (130-400); RBC Distribution Width 12.6 % (11.5-14.5); Red Blood Cell (RBC) Count 2.43 mill/uL (4.20-5.40); White Blood Cell (WBC) Count 3.2 thou/uL (4.8-10.8)
[2020-12-01] MEDS: Enoxaparin Sodium 30 MG/0.3 ML SYRINGE SC SCH (08:51)
[2020-12-01] MEDS: Famotidine/PF 20 mg/2ml Vial SLOW IVP SCH (08:52)
[2020-12-01] MEDS: Ferrous Sulfate 325 MG TAB PO SCH (08:52)
[2020-12-01] MEDS: cloNIDine 0.1 MG TAB PO SCH (08:52)
[2020-12-01 12:17] VITALS: BP 149/71; TEMP 97.6
[2020-12-05 05:45] LABS: Alkaline Phosphastase Total 326 IU/L (39-117); Bone 25 % (14-68); Intestinal 0 % (0-18); Liver 75 % (18-85)
== END 2020-12-01 14:18 | disposition home or self-care (01) | DRG 389 ==
LOC: ERS 05:50 → SJJU 09:59
PROVIDERS: ADMIT Internal Medicine; ATTEND Internal Medicine
PROC: 0DBB8ZX Excision of Ileum, Via Natural or Artificial Opening Endoscopic, Diagnostic (ICD-10-PCS; principal; 2020-11-26)
PROC: 0DJ08ZZ Inspection of Upper Intestinal Tract, Via Natural or Artificial Opening Endoscopic (ICD-10-PCS; 2020-11-26)
PROC: 0D9670Z Drainage of Stomach with Drainage Device, Via Natural or Artificial Opening (ICD-10-PCS; 2020-11-26)
DX: K56.2 Volvulus (principal); N17.9 Acute kidney failure, unspecified; N18.4 Chronic kidney disease, stage 4 (severe); E87.2 Acidosis; K50.00 Crohn's disease of small intestine without complications; Z20.822 Contact with and (suspected) exposure to COVID-19; G89.29 Other chronic pain; K20.90 Esophagitis, unspecified without bleeding; K44.9 Diaphragmatic hernia without obstruction or gangrene; I10 Essential (primary) hypertension; D63.1 Anemia in chronic kidney disease; Z85.038 Personal history of other malignant neoplasm of large intestine; Z88.8 Allergy status to other drugs, medicaments and biological substances; Z91.011 Allergy to milk products; Z90.49 Acquired absence of other specified parts of digestive tract; Z88.2 Allergy status to sulfonamides; Z79.899 Other long term (current) drug therapy
CPT/HCPCS: 36415; 71045; 74018; 74176; 74250; 80048; 80053; 81003; 81015; 82977; 83690; 84075; 84484; 85025; 85540; 88305; 93005; 96374; J0360; J0696; J1100; J1650; J2405; J2704; J3010; J3480; J3490; P9047; Q5105; Q9963; S0028; U0002

== ENCOUNTER 2021-01-12 08:52 | Outpatient (CLI) | payer MEDICARE | END 2021-01-12 08:53 | disposition home or self-care (01) | LOC: BICMAMMO 08:52 | PROVIDERS: ATTEND Internal Medicine Rheumatology | DX: Z13.820 Encounter for screening for osteoporosis (principal); M81.0 Age-related osteoporosis without current pathological fracture | CPT/HCPCS: 77080 ==

== ENCOUNTER 2021-01-28 10:39 | Day surgery (SDC) | payer MEDICARE ==
[~2021-01-28 10:39] MED LIST: Acetaminophen 500 MG TAB PO SCH; Vedolizumab 300 MG in Sodium Chloride 0.9% 250 ML 250 ML IVPB SCH
[2021-01-28 12:16] VITALS: BP 176/84; TEMP 98.2
== END 2021-01-28 12:51 | disposition home or self-care (01) ==
LOC: ONC/OP 10:39
PROVIDERS: ATTEND Internal Medicine Gastroenterology
DX: K51.00 Ulcerative (chronic) pancolitis without complications (principal); Z88.2 Allergy status to sulfonamides; Z88.5 Allergy status to narcotic agent; Z88.8 Allergy status to other drugs, medicaments and biological substances; Z91.040 Latex allergy status
CPT/HCPCS: 96413

== ENCOUNTER 2021-04-25 09:51 | Day surgery (SDC) | payer MEDICARE ==
[~2021-04-25 09:51] MED LIST changes: +Acetaminophen 500 MG TAB PO PRN
[2021-04-25] MEDS ORDERED: Sodium Chloride 0.9% 20 ML ONE (10:45)
[2021-04-25 11:25] VITALS: BP 165/79
== END 2021-04-25 14:52 | disposition home or self-care (01) ==
LOC: ONC/OP 09:51
PROVIDERS: ATTEND Internal Medicine Gastroenterology
DX: K51.00 Ulcerative (chronic) pancolitis without complications (principal); Z88.2 Allergy status to sulfonamides; Z88.5 Allergy status to narcotic agent; Z88.8 Allergy status to other drugs, medicaments and biological substances; Z91.011 Allergy to milk products; Z91.018 Allergy to other foods; Z91.040 Latex allergy status
CPT/HCPCS: 96413

== ENCOUNTER 2021-05-04 11:24 | Outpatient (CLI) | payer MEDICARE | END 2021-05-04 11:25 | disposition home or self-care (01) | LOC: BICMAMMO 11:24 | PROVIDERS: ATTEND Internal Medicine Hematology & Oncology | DX: Z12.31 Encounter for screening mammogram for malignant neoplasm of breast (principal); Z85.038 Personal history of other malignant neoplasm of large intestine | CPT/HCPCS: 77063; 77067 ==

== ENCOUNTER 2021-06-17 10:32 | Day surgery (SDC) | payer MEDICARE ==
[2021-06-17] MEDS ORDERED: Sodium Chloride 0.9% 20 ML ONE (10:39)
[2021-06-17 11:14] VITALS: BP 191/82; TEMP 98.3
== END 2021-06-17 12:06 | disposition home or self-care (01) ==
LOC: ONC/OP 10:32
PROVIDERS: ATTEND Internal Medicine Gastroenterology
DX: K51.00 Ulcerative (chronic) pancolitis without complications (principal); Z79.899 Other long term (current) drug therapy; Z88.2 Allergy status to sulfonamides; Z88.5 Allergy status to narcotic agent; Z88.8 Allergy status to other drugs, medicaments and biological substances; Z91.011 Allergy to milk products; Z91.040 Latex allergy status
CPT/HCPCS: 96413

== ENCOUNTER 2021-07-29 11:31 | Day surgery (SDC) | payer MEDICARE ==
[~2021-07-29 11:31] MED LIST changes: +Sodium Chloride 0.9% 1,000 ML IV SCH
[2021-07-29] MEDS ORDERED: Sodium Chloride 0.9% 10 ML ONE ×2 (12:05)
[2021-07-29 14:21] VITALS: BP 189/79; TEMP 98
== END 2021-07-29 14:45 | disposition home or self-care (01) ==
LOC: ONC/OP 11:31
PROVIDERS: ATTEND Internal Medicine Gastroenterology
DX: K51.00 Ulcerative (chronic) pancolitis without complications (principal); Z88.2 Allergy status to sulfonamides; Z88.5 Allergy status to narcotic agent; Z88.8 Allergy status to other drugs, medicaments and biological substances; Z91.040 Latex allergy status
CPT/HCPCS: 96413

== ENCOUNTER → 2021-09-08 | Day surgery (SDC) | payer MEDICARE ==
[~2021-09-08] MED LIST changes: +Sodium Chloride 0.9% 10 ML ONE
[2021-09-08 11:41] VITALS: BP 183/77; TEMP 97.7
== END ==
LOC: ONC/OP 10:46
PROVIDERS: ATTEND Internal Medicine Gastroenterology
DX: K51.00 Ulcerative (chronic) pancolitis without complications (principal); Z88.2 Allergy status to sulfonamides; Z88.5 Allergy status to narcotic agent; Z88.8 Allergy status to other drugs, medicaments and biological substances; Z91.040 Latex allergy status
CPT/HCPCS: 96413

== ENCOUNTER 2021-09-30 14:26 | Inpatient (IN) | payer MEDICARE ==
[2021-09-30 15:36] LABS: #Lymphocytes 0.8 thou/uL (1.20-3.40); #Neutrophils 8.2 thou/uL (1.40-6.50); %Basophils 0.2 % (0.0-1.0); %Monocytes 10.2 % (0.0-10.0); %Neutrophils 81.6 % (42.0-75.0); Hemoglobin 5.2 g/dL (12.0-16.0); Mean Corpuscular HGB CONC 33.1 g/dL (32.0-36.0); Mean Corpuscular Hemoglobin 31.9 pg (27.0-31.0); Mean Corpuscular Volume 96.5 fL (78.0-98.0); Mean Platelet Volume 5.8 fL (7.4-10.4); Platelet Count 188 thou/uL (130-400); RBC Distribution Width 11.2 % (11.5-14.5); Red Blood Cell (RBC) Count 1.64 mill/uL (4.20-5.40)
[2021-09-30 15:50] LABS: ALT (SGPT) 24 U/L (8-55); AST (SGOT) 27 U/L (5-34); Albumin 3.1 g/dL (3.4-4.8); Alkaline Phosphatase 163 U/L (40-110); Anion Gap 13 mmol/L (10-20); BUN (Urea Nitrogen) 52 mg/dL (9.8-20.1); Bilirubin, Total 0.3 mg/dL (0.2-1.2); Calc. Creatinine Clearance 0 mL/min (70-130); Calcium 9.3 mg/dL (7.8-10.44); Carbon Dioxide 23 mmol/L (23-31); Chloride 88 mmol/L (98-107); Globulin 2.7 g/dL (2.4-3.5); Glucose 147 mg/dL (83-110); Lipase 32 U/L (8-78); Potassium 3.6 mmol/L (3.5-5.1); Protein, Total 5.8 g/dL (5.8-8.1); Sodium 120 mmol/L (136-145)
[2021-09-30 16:05] LABS: PTT 30.9 sec (22.9-36.1); Prothrombin Time 13.4 sec (12.0-14.7)
[2021-09-30 16:14] LABS: CKMB 2.5 ng/mL (0-6.6)
[2021-09-30] MEDS ORDERED: cloNIDine 0.1 MG TAB ONE (16:46)
[2021-09-30] MEDS ORDERED: Epoetin (ESRD) 20,000 UNITS/ML SC SCH (17:00)
[2021-09-30] MEDS ORDERED: Aspirin Chewable 81 MG TAB ONE (17:10)
[2021-09-30] MEDS ORDERED: Ondansetron ODT 4 MG TAB PO PRN (17:40)
[2021-09-30] MEDS ORDERED: Ondansetron PF 4 MG/2 ML Vial IVP PRN (17:40)
[2021-09-30] MEDS ORDERED: Acetaminophen 650 MG Suppository PR PRN (17:40)
[2021-09-30] MEDS ORDERED: Sodium Chloride 0.9% 1,000 ML IV SCH (17:45)
[2021-09-30 18:15] LABS: SARS-CoV-2 NAA Rapid Test Not Detected (NotDetected)
[2021-09-30 18:24] LABS: Hemoglobin 4.8 g/dL (12.0-16.0)
[2021-09-30 18:42] LABS: Sodium 119 mmol/L (136-145)
[2021-09-30 18:48] LABS: Troponin I 0.037 ng/mL (< 0.028)
[2021-09-30] MEDS ORDERED: Tacrolimus 1 MG CAP PO SCH (21:00)
[2021-09-30 21:45] LABS: Troponin I 0.041 ng/mL (< 0.028)
[2021-09-30] MEDS: EPOETIN ALFA-EPBX (ESRD) 4,000 UNIT/ML VIAL SC SCH (22:46)
[2021-09-30] MEDS ORDERED: cloNIDine 0.1 MG TAB PO SCH (23:15)
[2021-10-01 00:10] LABS: Sodium, Urine Less than 20 mmol/L (Not Available); Urea Nitrogen, Random Urine 293 mg/dl
[2021-10-01 00:54] LABS: SARS-CoV-2 PCR by NAA Not Detected (NotDetected)
[2021-10-01 03:03] LABS: #Lymphocytes 0.7 thou/uL (1.20-3.40); #Neutrophils 8.7 thou/uL (1.40-6.50); %Basophils 0.3 % (0.0-1.0); %Lymphocytes 6.6 % (21.0-51.0); %Monocytes 9.7 % (0.0-10.0); %Neutrophils 83.4 % (42.0-75.0); Hemoglobin 8.3 g/dL (12.0-16.0); Mean Corpuscular HGB CONC 35.5 g/dL (32.0-36.0); Mean Corpuscular Hemoglobin 33.5 pg (27.0-31.0); Mean Corpuscular Volume 94.5 fL (78.0-98.0); Mean Platelet Volume 5.7 fL (7.4-10.4); Platelet Count 175 thou/uL (130-400); RBC Distribution Width 12.1 % (11.5-14.5); Red Blood Cell (RBC) Count 2.48 mill/uL (4.20-5.40); White Blood Cell (WBC) Count 10.4 thou/uL (4.8-10.8)
[2021-10-01 03:21] LABS: Anion Gap 12 mmol/L (10-20); BUN (Urea Nitrogen) 53 mg/dL (9.8-20.1); Calc. Creatinine Clearance 12 mL/min (70-130); Calcium 8.7 mg/dL (7.8-10.44); Carbon Dioxide 21 mmol/L (23-31); Chloride 87 mmol/L (98-107); Glucose 116 mg/dL (83-110); Potassium 4.1 mmol/L (3.5-5.1)
[2021-10-01 03:29] LABS: Sodium 116 mmol/L (136-145)
[2021-10-01 07:16] LABS: Hemoglobin 7.8 g/dL (12.0-16.0)
[2021-10-01 07:35] LABS: Sodium 118 mmol/L (136-145)
[2021-10-01] MEDS ORDERED: Sodium Chloride 3% 500 ML IVPB SCH (08:45)
[2021-10-01] MEDS: cloNIDine 0.1 MG TAB PO SCH ×2 (09:17→21:27)
[2021-10-01] MEDS: Acetaminophen 325 MG TAB PO PRN (09:17)
[2021-10-01 14:02] LABS: Hemoglobin 8.2 g/dL (12.0-16.0)
[2021-10-01 14:13] LABS: Sodium 120 mmol/L (136-145)
[2021-10-01 18:13] LABS: Sodium 121 mmol/L (136-145)
[2021-10-01 18:44] LABS: Hemoglobin 8.6 g/dL (12.0-16.0)
[2021-10-01] MEDS: Famotidine 20 MG TAB PO SCH (21:27)
[2021-10-02 00:15] LABS: Hemoglobin 9.1 g/dL (12.0-16.0)
[2021-10-02 00:16] LABS: Sodium 126 mmol/L (136-145)
[2021-10-02 05:06] LABS: Phosphorus 3.1 mg/dL (2.3-4.7)
[2021-10-02 05:09] LABS: Hemoglobin 9.4 g/dL (12.0-16.0); Mean Corpuscular HGB CONC 33.5 g/dL (32.0-36.0); Mean Corpuscular Hemoglobin 32.1 pg (27.0-31.0); Mean Corpuscular Volume 95.8 fL (78.0-98.0); Mean Platelet Volume 6.2 fL (7.4-10.4); Platelet Count 195 thou/uL (130-400); RBC Distribution Width 12.9 % (11.5-14.5); Red Blood Cell (RBC) Count 2.94 mill/uL (4.20-5.40); White Blood Cell (WBC) Count 13.7 thou/uL (4.8-10.8)
[2021-10-02 05:12] LABS: Anion Gap 12 mmol/L (10-20); BUN (Urea Nitrogen) 60 mg/dL (9.8-20.1); Calc. Creatinine Clearance 10 mL/min (70-130); Calcium 8.6 mg/dL (7.8-10.44); Carbon Dioxide 20 mmol/L (23-31); Chloride 97 mmol/L (98-107); Glucose 139 mg/dL (83-110); Potassium 4.4 mmol/L (3.5-5.1); Sodium 125 mmol/L (136-145)
[2021-10-02 05:58] LABS: Band 16 % (5-11); Lymphocytes 3 % (21-51); MDiff Complete? YES; Monocytes 11 % (0-10); Neutrophil 70 % (42-75)
[2021-10-02] MEDS: cloNIDine 0.1 MG TAB PO SCH ×2 (08:30→20:39)
[2021-10-02] MEDS: Acetaminophen 325 MG TAB PO PRN (08:30)
[2021-10-02] MEDS: Cefepime 1 GM in Sodium Chloride 0.9% 100 ML IVPB SCH (15:58)
[2021-10-02] MEDS: Dextrose 5 % And 0.9 % NaCl 1,000 ML IV SCH (15:58)
[2021-10-02] MEDS ORDERED: Magnesium Citrate 300 ML BOT PO SCH (16:30)
[2021-10-02] MEDS ORDERED: GoLYTELY 4,000 ml Bottle PO SCH (16:30)
[2021-10-02] MEDS: Carvedilol 6.25 MG TAB PO SCH (18:24)
[2021-10-02] MEDS: Doxycycline 100 MG CAP PO SCH (20:38)
[2021-10-02] MEDS: Famotidine 20 MG TAB PO SCH (20:38)
[2021-10-02] MEDS ORDERED: Cefepime 0.5 GM in Admixture Fee 1 EACH IVPB SCH (21:00)
[2021-10-03] MEDS: Dextrose 5 % And 0.9 % NaCl 1,000 ML IV SCH ×3 (00:08→22:10)
[2021-10-03 04:06] LABS: SARS-CoV-2 NAA Rapid Test Not Detected (NotDetected)
[2021-10-03 04:38] LABS: Anion Gap 13 mmol/L (10-20); BUN (Urea Nitrogen) 60 mg/dL (9.8-20.1); Calc. Creatinine Clearance 10 mL/min (70-130); Calcium 7.9 mg/dL (7.8-10.44); Carbon Dioxide 17 mmol/L (23-31); Chloride 106 mmol/L (98-107); Glucose 122 mg/dL (83-110); Sodium 132 mmol/L (136-145)
[2021-10-03 05:28] LABS: Band 17 % (5-11); Burr Cells SLIGHT = 2-5 cells (100X) (0-1/hpf); Hemoglobin 8.5 g/dL (12.0-16.0); Hypochromia SLIGHT = 6-15 cells (100X) (0-5/hpf); Lymphocytes 11 % (21-51); MDiff Complete? YES; Mean Corpuscular HGB CONC 31.4 g/dL (32.0-36.0); Mean Corpuscular Hemoglobin 31.3 pg (27.0-31.0); Mean Corpuscular Volume 99.8 fL (78.0-98.0); Mean Platelet Volume 5.9 fL (7.4-10.4); Monocytes 15 % (0-10); Neutrophil 56 % (42-75); Platelet Count 193 thou/uL (130-400); Platelet Morphology Comment Appears Adequate; Polychromasia SLIGHT = 2-3 cells (100X) (0-2/hpf); Red Blood Cell (RBC) Count 2.71 mill/uL (4.20-5.40); White Blood Cell (WBC) Count 7.6 thou/uL (4.8-10.8)
[2021-10-03] MEDS ORDERED: Heparin 5,000 UNITS/ML VIAL ONE (07:18)
[2021-10-03] MEDS ORDERED: Xylocaine 1% w/ Epi 1:100K 10 ML VIAL ONE (07:18)
[2021-10-03] MEDS ORDERED: Heparin 10,000 UNITS/ 10 ML VIAL ONE ×3 (07:18→08:40)
[2021-10-03] MEDS ORDERED: Bupivacaine PF 0.5% 30 ML VIAL ONE (07:18)
[2021-10-03] MEDS ORDERED: Sodium Chloride 0.9% 10 ML ONE (07:18)
[2021-10-03] MEDS ORDERED: Protamine Sulfate 50 MG/5 ML VIAL ONE (07:18)
[2021-10-03] MEDS ORDERED: Propofol 500 MG/50 ML VIAL ONE (07:39)
[2021-10-03] MEDS ORDERED: SUGAMMADEX SODIUM 200 MG/2 ML VIAL ONE (07:39)
[2021-10-03] MEDS ORDERED: Fentanyl 250 MCG/5 ML VIAL ONE (07:39)
[2021-10-03] MEDS ORDERED: PHENYLEPHRINE-NS 100 MCG/ML 10 ML SYRINGE ONE (07:40)
[2021-10-03] MEDS ORDERED: Midazolam HCl 2 mg/2 ml Vial ONE (08:14)
[2021-10-03] MEDS ORDERED: CEFAZOLIN 2 GM in Sodium Chloride 0.9% 100 ML IVPB SCH (08:15)
[2021-10-03] MEDS ORDERED: ceFAZolin 2 GM/Dextrose 50 ML 2 GM in Premix Bag 1 BAG IVPB SCH (08:15)
[2021-10-03] MEDS ORDERED: Sodium Chloride 0.9% 20 ML ONE (08:35)
[2021-10-03] MEDS ORDERED: Ondansetron PF 4 MG/2 ML Vial ONE (08:39)
[2021-10-03] MEDS ORDERED: PROPOFOL 200 MG/20 ML VIAL ONE (08:39)
[2021-10-03] MEDS ORDERED: Lidocaine 1% PF 5 ML VIAL ONE (08:39)
[2021-10-03] MEDS: Carvedilol 6.25 MG TAB PO SCH ×2 (08:50→16:13)
[2021-10-03] MEDS: Doxycycline 100 MG CAP PO SCH ×2 (08:51→22:02)
[2021-10-03] MEDS: cloNIDine 0.1 MG TAB PO SCH ×2 (08:51→22:02)
[2021-10-03 14:08] LABS: HBSAg Index 0.23 S/CO (0-0.99); Hep B Surf Ag Non-Reactive S/CO (NonReactive)
[2021-10-03] MEDS: Cefepime 1 GM in Sodium Chloride 0.9% 100 ML IVPB SCH (16:13)
[2021-10-03] MEDS: Acetaminophen 325 MG TAB PO PRN (18:12)
[2021-10-03] MEDS: Famotidine 20 MG TAB PO SCH (22:03)
[2021-10-03] MEDS: Mesalamine 1000 MG Suppository PR SCH (23:48)
[2021-10-04] MEDS: Acetaminophen 325 MG TAB PO PRN ×2 (03:16→09:31)
[2021-10-04] MEDS: Dextrose 5 % And 0.9 % NaCl 1,000 ML IV SCH (05:13)
[2021-10-04 06:29] LABS: Hemoglobin 7.5 g/dL (12.0-16.0); Mean Corpuscular HGB CONC 32.3 g/dL (32.0-36.0); Mean Corpuscular Hemoglobin 31.9 pg (27.0-31.0); Mean Corpuscular Volume 98.9 fL (78.0-98.0); Mean Platelet Volume 5.9 fL (7.4-10.4); Platelet Count 196 thou/uL (130-400); Red Blood Cell (RBC) Count 2.35 mill/uL (4.20-5.40); White Blood Cell (WBC) Count 4.6 thou/uL (4.8-10.8)
[2021-10-04 06:47] LABS: Anion Gap 10 mmol/L (10-20); BUN (Urea Nitrogen) 50 mg/dL (9.8-20.1); Calc. Creatinine Clearance 11 mL/min (70-130); Calcium 7.4 mg/dL (7.8-10.44); Carbon Dioxide 20 mmol/L (23-31); Chloride 108 mmol/L (98-107); Glucose 116 mg/dL (83-110); Potassium 3.7 mmol/L (3.5-5.1); Sodium 134 mmol/L (136-145)
[2021-10-04 08:07] LABS: Band 12 % (5-11); Burr Cells SLIGHT = 2-5 cells (100X) (0-1/hpf); Eosinophils 1 % (0-10); Lymphocytes 41 % (21-51); MDiff Complete? YES; Monocytes 6 % (0-10); Neutrophil 39 % (42-75); Nucleated RBC 1 % (0); Platelet Morphology Comment Appears Adequate; Polychromasia SLIGHT = 2-3 cells (100X) (0-2/hpf); Reactive Lymphocytes 1 % (0-10)
[2021-10-04] MEDS ORDERED: Tuberculin PPD 0.1 ML VIAL I-DERMAL SCH (09:15)
[2021-10-04] MEDS: Carvedilol 6.25 MG TAB PO SCH ×2 (11:13→16:07)
[2021-10-04] MEDS: Ferrous Sulfate 325 MG TAB PO SCH (11:14)
[2021-10-04] MEDS: Doxycycline 100 MG CAP PO SCH ×2 (11:14→21:03)
[2021-10-04] MEDS: cloNIDine 0.1 MG TAB PO SCH ×2 (11:14→21:03)
[2021-10-04] MEDS ORDERED: Heparin 10,000 UNITS/ 10 ML VIAL ONE (11:39)
[2021-10-04] MEDS: Cefepime 1 GM in Sodium Chloride 0.9% 100 ML IVPB SCH (16:06)
[2021-10-04] MEDS: Famotidine 20 MG TAB PO SCH (21:03)
[2021-10-04] MEDS: Mesalamine 1000 MG Suppository PR SCH (21:03)
[2021-10-05 04:27] LABS: #Lymphocytes 1.2 thou/uL (1.20-3.40); #Monocytes 0.7 thou/uL (0.11-0.59); %Basophils 0.6 % (0.0-1.0); %Lymphocytes 23.3 % (21.0-51.0); %Monocytes 13.8 % (0.0-10.0); %Neutrophils 61.3 % (42.0-75.0); Hemoglobin 7.5 g/dL (12.0-16.0); Mean Corpuscular HGB CONC 32.4 g/dL (32.0-36.0); Mean Corpuscular Volume 98.7 fL (78.0-98.0); Mean Platelet Volume 5.8 fL (7.4-10.4); Platelet Count 201 thou/uL (130-400); Red Blood Cell (RBC) Count 2.35 mill/uL (4.20-5.40); White Blood Cell (WBC) Count 4.9 thou/uL (4.8-10.8)
[2021-10-05 04:41] LABS: Anion Gap 11 mmol/L (10-20); BUN (Urea Nitrogen) 40 mg/dL (9.8-20.1); Calc. Creatinine Clearance 12 mL/min (70-130); Calcium 7.4 mg/dL (7.8-10.44); Carbon Dioxide 23 mmol/L (23-31); Chloride 106 mmol/L (98-107); Glucose 86 mg/dL (83-110); Potassium 3.8 mmol/L (3.5-5.1); Sodium 136 mmol/L (136-145)
[2021-10-05 05:01] LABS: HBSAB Concentration Less than 8.00 mIU/mL; HBSAg Index 0.22 S/CO (0-0.99); Hep B Core Total Ab Non-Reactive (NonReactive); Hep B Core Total Index 0.05 S/CO (0-0.79); Hep B Surf AB Non-Reactive (NonReactive); Hep B Surf Ag Non-Reactive S/CO (NonReactive); Hep C IgG Ab Non-Reactive (NonReactive); Hep C Index 0.08 S/CO (0-0.79)
[2021-10-05] MEDS: Ferrous Sulfate 325 MG TAB PO SCH (08:15)
[2021-10-05] MEDS: cloNIDine 0.1 MG TAB PO SCH ×2 (08:15→20:50)
[2021-10-05] MEDS: Carvedilol 6.25 MG TAB PO SCH ×2 (08:16→15:59)
[2021-10-05] MEDS ORDERED: Communication Order-Pharmacy FS SCH (10:30)
[2021-10-05] MEDS ORDERED: Heparin 10,000 UNITS/ 10 ML VIAL ONE (11:47)
[2021-10-05] MEDS ORDERED: cloNIDine 0.1 MG TAB PO SCH (15:45)
[2021-10-05] MEDS: Doxycycline 100 MG CAP PO SCH ×2 (15:52→20:50)
[2021-10-05] MEDS: Cefepime 1 GM in Sodium Chloride 0.9% 100 ML IVPB SCH (15:58)
[2021-10-05] MEDS: Famotidine 20 MG TAB PO SCH (20:50)
[2021-10-05] MEDS: Mesalamine 1000 MG Suppository PR SCH (20:51)
[2021-10-06 05:12] LABS: #Lymphocytes 1.3 thou/uL (1.20-3.40); #Monocytes 0.6 thou/uL (0.11-0.59); #Neutrophils 2.9 thou/uL (1.40-6.50); %Basophils 0.2 % (0.0-1.0); %Eosinophils 0.7 % (0.0-10.0); %Lymphocytes 26.9 % (21.0-51.0); %Monocytes 12.8 % (0.0-10.0); %Neutrophils 59.4 % (42.0-75.0); Mean Corpuscular HGB CONC 32.7 g/dL (32.0-36.0); Mean Corpuscular Hemoglobin 32.1 pg (27.0-31.0); Mean Platelet Volume 5.7 fL (7.4-10.4); Platelet Count 203 thou/uL (130-400); White Blood Cell (WBC) Count 4.9 thou/uL (4.8-10.8)
[2021-10-06 05:16] LABS: Anion Gap 11 mmol/L (10-20); BUN (Urea Nitrogen) 27 mg/dL (9.8-20.1); Calc. Creatinine Clearance 16 mL/min (70-130); Calcium 7.5 mg/dL (7.8-10.44); Carbon Dioxide 27 mmol/L (23-31); Chloride 102 mmol/L (98-107); Glucose 96 mg/dL (83-110); Potassium 3.8 mmol/L (3.5-5.1); Sodium 136 mmol/L (136-145)
[2021-10-06] MEDS: cloNIDine 0.1 MG TAB PO SCH ×3 (08:19→20:11)
[2021-10-06] MEDS: Carvedilol 6.25 MG TAB PO SCH ×2 (09:23→16:20)
[2021-10-06] MEDS ORDERED: Heparin 10,000 UNITS/ 10 ML VIAL ONE (09:30)
[2021-10-06] MEDS ORDERED: Clindamycin/D5W 900 MG in Premix Bag 1 BAG IVPB SCH (15:30)
[2021-10-06] MEDS: Ferrous Sulfate 325 MG TAB PO SCH (16:21)
[2021-10-06] MEDS: Cefepime 1 GM in Sodium Chloride 0.9% 100 ML IVPB SCH (16:22)
[2021-10-06] MEDS: Doxycycline 100 MG CAP PO SCH ×2 (16:24→20:11)
[2021-10-06] MEDS: Famotidine 20 MG TAB PO SCH (20:11)
[2021-10-06] MEDS: Mesalamine 1000 MG Suppository PR SCH (20:12)
[2021-10-06 22:15] LABS: SARS-CoV-2 PCR by NAA Not Detected (NotDetected)
[2021-10-07 04:59] LABS: #Lymphocytes 1.4 thou/uL (1.20-3.40); #Monocytes 0.8 thou/uL (0.11-0.59); #Neutrophils 3.2 thou/uL (1.40-6.50); %Basophils 0.4 % (0.0-1.0); %Eosinophils 0.8 % (0.0-10.0); %Monocytes 13.8 % (0.0-10.0); %Neutrophils 58.9 % (42.0-75.0); Hemoglobin 8.2 g/dL (12.0-16.0); Mean Corpuscular HGB CONC 32.2 g/dL (32.0-36.0); Mean Corpuscular Volume 99.3 fL (78.0-98.0); Mean Platelet Volume 5.6 fL (7.4-10.4); Platelet Count 219 thou/uL (130-400); RBC Distribution Width 12.9 % (11.5-14.5); Red Blood Cell (RBC) Count 2.58 mill/uL (4.20-5.40); White Blood Cell (WBC) Count 5.5 thou/uL (4.8-10.8)
[2021-10-07 05:14] LABS: Anion Gap 8 mmol/L (10-20); BUN (Urea Nitrogen) 19 mg/dL (9.8-20.1); Calc. Creatinine Clearance 18 mL/min (70-130); Carbon Dioxide 31 mmol/L (23-31); Chloride 101 mmol/L (98-107); Glucose 90 mg/dL (83-110); Potassium 3.8 mmol/L (3.5-5.1); Sodium 136 mmol/L (136-145)
[2021-10-07] MEDS ORDERED: Protamine Sulfate 50 MG/5 ML VIAL ONE (06:32)
[2021-10-07] MEDS ORDERED: Heparin 5,000 UNITS/ML VIAL ONE (06:32)
[2021-10-07] MEDS ORDERED: Xylocaine 1% w/ Epi 1:100K 10 ML VIAL ONE (06:32)
[2021-10-07] MEDS ORDERED: Bupivacaine PF 0.5% 30 ML VIAL ONE (06:32)
[2021-10-07] MEDS ORDERED: Fentanyl 250 MCG/5 ML VIAL ONE (07:05)
[2021-10-07] MEDS ORDERED: Midazolam HCl 2 mg/2 ml Vial ONE (07:05)
[2021-10-07] MEDS ORDERED: Propofol 1,000 MG/100 ML VIAL IV ONE (07:05)
[2021-10-07] MEDS ORDERED: Clindamycin/D5W 900 mg/50 ml Premix Bag ONE (08:09)
[2021-10-07] MEDS ORDERED: Ropivacaine 0.5% HCl/PF (150 MG/30 ML VIAL) ONE (08:11)
[2021-10-07] MEDS ORDERED: Ondansetron HCl/PF 4 MG/2 ML Vial IVP PRN (09:45)
[2021-10-07] MEDS ORDERED: Promethazine HCl 25 MG/ML VIAL IVPB PRN (09:45)
[2021-10-07] MEDS ORDERED: Promethazine HCl 25 MG/ML VIAL IM PRN (09:45)
[2021-10-07] MEDS: Ferrous Sulfate 325 MG TAB PO SCH (10:23)
[2021-10-07] MEDS: cloNIDine 0.1 MG TAB PO SCH ×3 (10:23→21:32)
[2021-10-07] MEDS: Doxycycline 100 MG CAP PO SCH (10:23)
[2021-10-07] MEDS: Carvedilol 6.25 MG TAB PO SCH ×2 (10:23→16:35)
[2021-10-07 14:15] LABS: Tacrolimus <0.5 ng/mL (2.0-20.0)
[2021-10-07] MEDS: EPOETIN ALFA-EPBX (ESRD) 4,000 UNIT/ML VIAL SC SCH (18:39)
[2021-10-07] MEDS: Mesalamine 1000 MG Suppository PR SCH (21:34)
[2021-10-07] MEDS: Famotidine 20 MG TAB PO SCH (21:35)
[2021-10-07] MEDS: Heparin 5,000 UNITS/ML VIAL SC SCH (21:51)
[2021-10-08] MEDS: diphenhydrAMINE 12.5 MG/5 ML UDCUP PO PRN ×2 (00:04→14:24)
[2021-10-08] MEDS ORDERED: Heparin 10,000 UNITS/ 10 ML VIAL ONE (09:23)
[2021-10-08] MEDS: Carvedilol 6.25 MG TAB PO SCH ×2 (10:57→18:53)
[2021-10-08] MEDS: cloNIDine 0.1 MG TAB PO SCH ×3 (11:00→21:25)
[2021-10-08] MEDS: Ferrous Sulfate 325 MG TAB PO SCH (14:06)
[2021-10-08] MEDS: Cefdinir 300 MG CAP PO SCH (14:06)
[2021-10-08] MEDS: Heparin 5,000 UNITS/ML VIAL SC SCH ×2 (14:07→21:27)
[2021-10-08] MEDS: Mesalamine 1000 MG Suppository PR SCH (21:27)
[2021-10-09 07:23] LABS: #Monocytes 0.5 thou/uL (0.11-0.59); #Neutrophils 2.7 thou/uL (1.40-6.50); %Basophils 0.6 % (0.0-1.0); %Eosinophils 0.9 % (0.0-10.0); %Lymphocytes 24.2 % (21.0-51.0); %Monocytes 11.1 % (0.0-10.0); %Neutrophils 63.2 % (42.0-75.0); Hemoglobin 7.4 g/dL (12.0-16.0); Mean Corpuscular HGB CONC 30.9 g/dL (32.0-36.0); Mean Corpuscular Hemoglobin 31.2 pg (27.0-31.0); Mean Platelet Volume 6.1 fL (7.4-10.4); Platelet Count 191 thou/uL (130-400); RBC Distribution Width 13.2 % (11.5-14.5); Red Blood Cell (RBC) Count 2.39 mill/uL (4.20-5.40); White Blood Cell (WBC) Count 4.2 thou/uL (4.8-10.8)
[2021-10-09 07:43] LABS: Anion Gap 11 mmol/L (10-20); BUN (Urea Nitrogen) 20 mg/dL (9.8-20.1); Calc. Creatinine Clearance 16 mL/min (70-130); Calcium 7.8 mg/dL (7.8-10.44); Carbon Dioxide 29 mmol/L (23-31); Chloride 99 mmol/L (98-107); Glucose 90 mg/dL (83-110); Potassium 3.8 mmol/L (3.5-5.1); Sodium 135 mmol/L (136-145)
[2021-10-09] MEDS: Ferrous Sulfate 325 MG TAB PO SCH (10:08)
[2021-10-09] MEDS: Cefdinir 300 MG CAP PO SCH (10:08)
[2021-10-09] MEDS: Heparin 5,000 UNITS/ML VIAL SC SCH ×2 (10:09→21:46)
[2021-10-09] MEDS: cloNIDine 0.1 MG TAB PO SCH ×3 (10:09→21:45)
[2021-10-09] MEDS: Carvedilol 6.25 MG TAB PO SCH ×2 (10:09→16:42)
[2021-10-09] MEDS ORDERED: Communication Order-Pharmacy FS SCH (16:00)
[2021-10-09] MEDS: Mesalamine 1000 MG Suppository PR SCH (21:49)
[2021-10-10 00:33] LABS: SARS-CoV-2 PCR by NAA Not Detected (NotDetected)
[2021-10-10 04:40] LABS: #Lymphocytes 1.4 thou/uL (1.20-3.40); #Monocytes 0.5 thou/uL (0.11-0.59); #Neutrophils 2.3 thou/uL (1.40-6.50); %Basophils 0.4 % (0.0-1.0); %Eosinophils 0.9 % (0.0-10.0); %Lymphocytes 32.9 % (21.0-51.0); %Monocytes 10.6 % (0.0-10.0); %Neutrophils 55.1 % (42.0-75.0); Mean Corpuscular HGB CONC 31.7 g/dL (32.0-36.0); Mean Corpuscular Hemoglobin 31.6 pg (27.0-31.0); Mean Corpuscular Volume 99.7 fL (78.0-98.0); Mean Platelet Volume 6.1 fL (7.4-10.4); Platelet Count 190 thou/uL (130-400); RBC Distribution Width 13.2 % (11.5-14.5); Red Blood Cell (RBC) Count 2.23 mill/uL (4.20-5.40); White Blood Cell (WBC) Count 4.2 thou/uL (4.8-10.8)
[2021-10-10 04:59] LABS: Anion Gap 11 mmol/L (10-20); BUN (Urea Nitrogen) 31 mg/dL (9.8-20.1); Calc. Creatinine Clearance 13 mL/min (70-130); Calcium 7.7 mg/dL (7.8-10.44); Carbon Dioxide 27 mmol/L (23-31); Chloride 100 mmol/L (98-107); Glucose 90 mg/dL (83-110); Potassium 3.8 mmol/L (3.5-5.1); Sodium 134 mmol/L (136-145)
[2021-10-10] MEDS ORDERED: Lidocaine 1% (PF) 30 ML VIAL ONE (08:13)
[2021-10-10] MEDS ORDERED: Midazolam HCl 2 mg/2 ml Vial ONE (08:33)
[2021-10-10] MEDS ORDERED: Fentanyl 250 MCG/5 ML VIAL ONE (08:33)
[2021-10-10] MEDS ORDERED: Heparin 10,000 UNITS/ 10 ML VIAL ONE (08:52)
[2021-10-10] MEDS ORDERED: Iopamidol 370 76% 100 ML VIAL ONE (09:17)
[2021-10-10] MEDS ORDERED: Nitroglycerin 0.4 MG TAB (25 Tab Bottle) SL PRN (09:59)
[2021-10-10] MEDS ORDERED: Acetaminophen/Codeine 30-300mg Tablet PO PRN ×2 (09:59)
[2021-10-10] MEDS ORDERED: Sodium Chloride 0.9% 200 ML IV PRN (09:59)
[2021-10-10] MEDS: Ferrous Sulfate 325 MG TAB PO SCH (10:07)
[2021-10-10] MEDS: Cefdinir 300 MG CAP PO SCH (10:07)
[2021-10-10] MEDS: Carvedilol 6.25 MG TAB PO SCH ×2 (10:07→16:46)
[2021-10-10] MEDS: cloNIDine 0.1 MG TAB PO SCH ×3 (10:08→21:03)
[2021-10-10 12:13] LABS: Hep B Surface AG-Rflx Sendout Negative (Negative); Hepatitis B Core Total Negative (Negative); Hepatitis B Surface AB-Sendout Non Reactive (.)
[2021-10-10] MEDS: Mesalamine 1000 MG Suppository PR SCH (21:05)
[2021-10-11 08:54] LABS: #Lymphocytes 1.2 thou/uL (1.20-3.40); #Monocytes 0.6 thou/uL (0.11-0.59); #Neutrophils 3.1 thou/uL (1.40-6.50); %Basophils 0.3 % (0.0-1.0); %Eosinophils 0.8 % (0.0-10.0); %Lymphocytes 23.7 % (21.0-51.0); %Monocytes 11.4 % (0.0-10.0); %Neutrophils 63.8 % (42.0-75.0); Hemoglobin 10.4 g/dL (12.0-16.0); Mean Corpuscular HGB CONC 31.9 g/dL (32.0-36.0); Mean Corpuscular Hemoglobin 30.4 pg (27.0-31.0); Mean Corpuscular Volume 95.3 fL (78.0-98.0); Mean Platelet Volume 6.4 fL (7.4-10.4); Platelet Count 205 thou/uL (130-400); RBC Distribution Width 16.1 % (11.5-14.5); Red Blood Cell (RBC) Count 3.42 mill/uL (4.20-5.40); White Blood Cell (WBC) Count 4.9 thou/uL (4.8-10.8)
[2021-10-11 09:09] LABS: Anion Gap 8 mmol/L (10-20); BUN (Urea Nitrogen) 18 mg/dL (9.8-20.1); Calc. Creatinine Clearance 16 mL/min (70-130); Calcium 8.2 mg/dL (7.8-10.44); Carbon Dioxide 29 mmol/L (23-31); Chloride 105 mmol/L (98-107); Glucose 85 mg/dL (83-110); Potassium 3.9 mmol/L (3.5-5.1); Sodium 138 mmol/L (136-145)
[2021-10-11] MEDS: cloNIDine 0.1 MG TAB PO SCH (09:26)
[2021-10-11] MEDS: Carvedilol 6.25 MG TAB PO SCH (09:26)
[2021-10-11] MEDS: Cefdinir 300 MG CAP PO SCH (09:26)
[2021-10-11] MEDS: Ferrous Sulfate 325 MG TAB PO SCH (09:26)
[2021-10-11 12:39] VITALS: BMI 21.1
[2021-10-11 12:44] VITALS: BP 150/72; TEMP 98.2
== END 2021-10-11 14:55 | disposition home or self-care (01) | DRG 673 ==
LOC: ERS 14:26 → 2NO 17:11
PROVIDERS: ADMIT Hospitalist; ATTEND Internal Medicine
PROC: 3E03329 Introduction of Other Anti-infective into Peripheral Vein, Percutaneous Approach (ICD-10-PCS; 2021-09-30)
PROC: 30233N1 Transfusion of Nonautologous Red Blood Cells into Peripheral Vein, Percutaneous Approach (ICD-10-PCS; 2021-09-30)
PROC: 0JH63XZ Insertion of Tunneled Vascular Access Device into Chest Subcutaneous Tissue and Fascia, Percutaneous Approach (ICD-10-PCS; 2021-10-03)
PROC: 0DJD8ZZ Inspection of Lower Intestinal Tract, Via Natural or Artificial Opening Endoscopic (ICD-10-PCS; 2021-10-03)
PROC: 02HV33Z Insertion of Infusion Device into Superior Vena Cava, Percutaneous Approach (ICD-10-PCS; 2021-10-03)
PROC: B548ZZA Ultrasonography of Superior Vena Cava, Guidance (ICD-10-PCS; 2021-10-03)
PROC: 031C0ZF Bypass Left Radial Artery to Lower Arm Vein, Open Approach (ICD-10-PCS; principal; 2021-10-07)
PROC: 4A023N7 Measurement of Cardiac Sampling and Pressure, Left Heart, Percutaneous Approach (ICD-10-PCS; 2021-10-10)
PROC: B2111ZZ Fluoroscopy of Multiple Coronary Arteries using Low Osmolar Contrast (ICD-10-PCS; 2021-10-10)
PROC: B2151ZZ Fluoroscopy of Left Heart using Low Osmolar Contrast (ICD-10-PCS; 2021-10-10)
DX: N17.9 Acute kidney failure, unspecified (principal); I50.23 Acute on chronic systolic (congestive) heart failure; J15.9 Unspecified bacterial pneumonia; K51.90 Ulcerative colitis, unspecified, without complications; E87.0 Hyperosmolality and hypernatremia; E87.2 Acidosis; I42.9 Cardiomyopathy, unspecified; N05.5 Unspecified nephritic syndrome with diffuse mesangiocapillary glomerulonephritis; Z20.822 Contact with and (suspected) exposure to COVID-19; N05.9 Unspecified nephritic syndrome with unspecified morphologic changes; E03.9 Hypothyroidism, unspecified; D63.1 Anemia in chronic kidney disease; N18.6 End stage renal disease; K52.9 Noninfective gastroenteritis and colitis, unspecified; I11.0 Hypertensive heart disease with heart failure; Z85.038 Personal history of other malignant neoplasm of large intestine; Z90.09 Acquired absence of other part of head and neck; Z88.8 Allergy status to other drugs, medicaments and biological substances; Z79.899 Other long term (current) drug therapy; Z88.5 Allergy status to narcotic agent; Z88.2 Allergy status to sulfonamides; Z91.040 Latex allergy status; Z91.011 Allergy to milk products
CPT/HCPCS: 0241U; 36415; 36430; 71045; 71250; 78451; 80048; 80053; 80197; 82553; 83690; 83880; 83930; 83935; 83970; 84100; 84300; 84484; 84540; 84560; 85025; 85379; 85610; 85730; 86580; 86704; 86705; 86706; 86707; 86803; 86850; 86900; 86901; 86922; 87040; 87086; 87340; 87350; 87633; 90935; 93005; 93306; 93458; 93798; 93970; 97139; A9540; C1751; C1752; C1776; G0257; J0692; J1644; J2001; J2250; J2405; J2704; J2720; J2795; J3010; J3490; J7042; J7050; J7131; J7507; P9016; Q0163; Q5105; Q9967; S0020; U0002; U0003; U0005

== ENCOUNTER 2021-12-08 15:33 | Outpatient (CLI) | payer MEDICARE ==
[2021-12-09 11:53] LABS: SARS-CoV-2 PCR by NAA Not Detected (NotDetected)
== END 2021-12-08 15:34 | disposition home or self-care (01) ==
LOC: LABBT 15:33
PROVIDERS: ATTEND Specialist
DX: Z01.818 Encounter for other preprocedural examination (principal); N18.6 End stage renal disease; Z20.822 Contact with and (suspected) exposure to COVID-19; T82.590A Other mechanical complication of surgically created arteriovenous fistula, initial encounter
CPT/HCPCS: 71046; 93005; U0003; U0005; 93010

== ENCOUNTER 2021-12-13 09:56 | Day surgery (SDC) | payer MEDICARE ==
[2021-12-09 16:37] VITALS: BMI 17.8
[2021-12-13] MEDS ORDERED: Bupivacaine PF 0.5% 30 ML VIAL ONE ×2 (11:07→12:26)
[2021-12-13] MEDS ORDERED: Fentanyl 100 MCG/2 ML VIAL ONE (11:07)
[2021-12-13 11:09] LABS: #Lymphocytes 2.1 thou/uL (1.20-3.40); #Monocytes 0.6 thou/uL (0.11-0.59); #Neutrophils 2.5 thou/uL (1.40-6.50); %Basophils 0.3 % (0.0-1.0); %Eosinophils 0.4 % (0.0-10.0); %Lymphocytes 39.6 % (21.0-51.0); %Monocytes 10.8 % (0.0-10.0); %Neutrophils 48.8 % (42.0-75.0); Hemoglobin 10.4 g/dL (12.0-16.0); Mean Corpuscular HGB CONC 31.3 g/dL (32.0-36.0); Mean Corpuscular Hemoglobin 34.2 pg (27.0-31.0); Mean Platelet Volume 6.5 fL (7.4-10.4); Platelet Count 190 thou/uL (130-400); RBC Distribution Width 18.3 % (11.5-14.5); Red Blood Cell (RBC) Count 3.03 mill/uL (4.20-5.40); White Blood Cell (WBC) Count 5.2 thou/uL (4.8-10.8)
[2021-12-13 11:17] LABS: Anion Gap 15 mmol/L (10-20); BUN (Urea Nitrogen) 38 mg/dL (9.8-20.1); Calc. Creatinine Clearance 9 mL/min (70-130); Carbon Dioxide 25 mmol/L (23-31); Chloride 100 mmol/L (98-107); Glucose 91 mg/dL (83-110); Potassium 4.9 mmol/L (3.5-5.1); Sodium 135 mmol/L (136-145)
[2021-12-13 11:35] LABS: MDiff Complete? YES; Macrocytosis SLIGHT = 6-15 cells (100X) (0-5/hpf); Platelet Morphology Comment Appears Adequate; Polychromasia SLIGHT = 2-3 cells (100X) (0-2/hpf)
[2021-12-13] MEDS ORDERED: Propofol 500 MG/50 ML VIAL ONE (12:23)
[2021-12-13] MEDS ORDERED: Heparin 5,000 UNITS/ML VIAL ONE (12:26)
[2021-12-13] MEDS ORDERED: Protamine Sulfate 50 MG/5 ML VIAL ONE (12:26)
[2021-12-13] MEDS ORDERED: Lidocaine 1% w/Epinephrine 1:100K 20 ML VIAL ONE (12:26)
[2021-12-13] MEDS ORDERED: ceFAZolin (BATCH) 2 GM/100 ML BAG ONE (12:37)
[2021-12-13] MEDS ORDERED: PROPOFOL 200 MG/20 ML VIAL ONE (12:55)
[2021-12-13] MEDS ORDERED: Lidocaine 1% PF 5 ML VIAL ONE (12:55)
[2021-12-13] MEDS ORDERED: HYDROcodone/Acetaminophen 5/325 mg Tablet ONE (14:43)
[2021-12-13] MEDS ORDERED: Heparin 1,000 UNITS/ML VIAL ONE (15:22)
== END 2021-12-13 15:40 | disposition home or self-care (01) ==
LOC: SDC 09:56
PROVIDERS: ATTEND Specialist
PROC: 05SC0ZZ Reposition Left Basilic Vein, Open Approach (ICD-10-PCS; principal; 2021-12-13)
DX: N18.6 End stage renal disease (principal); I82.612 Acute embolism and thrombosis of superficial veins of left upper extremity; T82.510A Breakdown (mechanical) of surgically created arteriovenous fistula, initial encounter; Z79.899 Other long term (current) drug therapy; Z88.0 Allergy status to penicillin; Z88.8 Allergy status to other drugs, medicaments and biological substances; Z99.2 Dependence on renal dialysis; Y81.1 Therapeutic (nonsurgical) and rehabilitative general- and plastic-surgery devices associated with adverse incidents
CPT/HCPCS: 80048; 85025; C1713; C1776; J0690; J1644; J2704; J2720; J3010; S0020

== ENCOUNTER 2021-12-23 03:47 | Inpatient (IN) | payer MEDICARE ==
[2021-12-23 06:21] VITALS: BMI 16.2
[2021-12-23 06:53] LABS: SARS-CoV-2 NAA Rapid Test Not Detected (NotDetected)
[2021-12-23] MEDS ORDERED: Sodium Chloride 0.9% 1,000 ML IV SCH (07:00)
[2021-12-23] MEDS ORDERED: Ondansetron PF 4 MG/2 ML Vial IVP PRN (07:57)
[2021-12-23] MEDS ORDERED: Senokot S 8.6-50 MG TAB PO PRN (07:57)
[2021-12-23] MEDS ORDERED: Acetaminophen 325 MG TAB PO PRN (07:57)
[2021-12-23] MEDS ORDERED: Bisacodyl 5 MG TAB PO PRN (07:57)
[2021-12-23 08:25] LABS: #Lymphocytes 1.4 thou/uL (1.20-3.40); #Monocytes 0.7 thou/uL (0.11-0.59); #Neutrophils 4.3 thou/uL (1.40-6.50); %Eosinophils 0.1 % (0.0-10.0); %Lymphocytes 22.5 % (21.0-51.0); %Monocytes 10.7 % (0.0-10.0); %Neutrophils 66.7 % (42.0-75.0); Mean Corpuscular Hemoglobin 33.2 pg (27.0-31.0); Mean Platelet Volume 6.1 fL (7.4-10.4); Platelet Count 249 thou/uL (130-400); RBC Distribution Width 16.7 % (11.5-14.5); Red Blood Cell (RBC) Count 3.02 mill/uL (4.20-5.40); White Blood Cell (WBC) Count 6.4 thou/uL (4.8-10.8)
[2021-12-23 08:40] LABS: Lactic Acid 1.1 mmol/L (0.5-2.2)
[2021-12-23 08:41] LABS: Phosphorus 7.7 mg/dL (2.3-4.7)
[2021-12-23 08:45] LABS: ALT (SGPT) 14 U/L (8-55); AST (SGOT) 19 U/L (5-34); Albumin 3.6 g/dL (3.4-4.8); Alkaline Phosphatase 138 U/L (40-110); Anion Gap 16 mmol/L (10-20); BUN (Urea Nitrogen) 49 mg/dL (9.8-20.1); Bilirubin, Total 0.4 mg/dL (0.2-1.2); Calc. Creatinine Clearance 6 mL/min (70-130); Calcium 9.3 mg/dL (7.8-10.44); Carbon Dioxide 31 mmol/L (23-31); Chloride 93 mmol/L (98-107); Globulin 2.8 g/dL (2.4-3.5); Glucose 126 mg/dL (83-110); Magnesium 2.4 mg/dL (1.6-2.6); Potassium 4.3 mmol/L (3.5-5.1); Protein, Total 6.4 g/dL (5.8-8.1); Sodium 136 mmol/L (136-145)
[2021-12-23] MEDS ORDERED: Heparin 10,000 UNITS/ 10 ML VIAL ONE (08:45)
[2021-12-23 08:53] LABS: Prothrombin Time 13.2 sec (12.0-14.7)
[2021-12-23] MEDS ORDERED: Famotidine/PF 20 mg/2ml Vial SLOW IVP SCH (09:00)
[2021-12-23 10:42] LABS: HBSAB Concentration Less than 8.00 mIU/mL; HBSAg Index 0.96 S/CO (0-0.99); Hep B Surf AB Non-Reactive (NonReactive); Hep B Surf Ag Non-Reactive S/CO (NonReactive)
[2021-12-23] MEDS ORDERED: Epoetin (ESRD) 10,000 UNITS/ML VIAL SC SCH (12:00)
[2021-12-23] MEDS: Sevelamer Carbonate 800 MG TAB PO SCH ×2 (17:40→17:45)
[2021-12-24 05:31] LABS: #Lymphocytes 2.1 thou/uL (1.20-3.40); #Monocytes 0.7 thou/uL (0.11-0.59); #Neutrophils 1.9 thou/uL (1.40-6.50); %Basophils 0.2 % (0.0-1.0); %Eosinophils 0.4 % (0.0-10.0); %Lymphocytes 45.1 % (21.0-51.0); %Monocytes 14.9 % (0.0-10.0); %Neutrophils 39.4 % (42.0-75.0); Hemoglobin 9.1 g/dL (12.0-16.0); Mean Corpuscular HGB CONC 31.7 g/dL (32.0-36.0); Mean Corpuscular Hemoglobin 33.4 pg (27.0-31.0); Mean Platelet Volume 5.9 fL (7.4-10.4); Platelet Count 225 thou/uL (130-400); RBC Distribution Width 16.9 % (11.5-14.5); Red Blood Cell (RBC) Count 2.74 mill/uL (4.20-5.40); White Blood Cell (WBC) Count 4.7 thou/uL (4.8-10.8)
[2021-12-24 05:49] LABS: Anion Gap 12 mmol/L (10-20); BUN (Urea Nitrogen) 19 mg/dL (9.8-20.1); Calc. Creatinine Clearance 9 mL/min (70-130); Calcium 8.5 mg/dL (7.8-10.44); Carbon Dioxide 25 mmol/L (23-31); Chloride 101 mmol/L (98-107); Glucose 87 mg/dL (83-110); Magnesium 2.1 mg/dL (1.6-2.6); Potassium 4.2 mmol/L (3.5-5.1); Sodium 134 mmol/L (136-145)
[2021-12-24 05:51] LABS: Phosphorus 4.3 mg/dL (2.3-4.7)
[2021-12-24] MEDS ORDERED: MD-Gastroview 120 ML BOT ONE (10:30)
[2021-12-24] MEDS ORDERED: HYDROcodone/Acetaminophen 5/325 mg Tablet PO PRN (11:11)
[2021-12-24] MEDS ORDERED: Colchicine 0.3 MG TAB PO PRN (11:11)
[2021-12-24 11:38] VITALS: BP 127/62; TEMP 96.2
[2021-12-24] MEDS ORDERED: Ascorbic Acid 500 mg Chewable Tablet PO SCH (15:00)
[2021-12-24] MEDS ORDERED: Carvedilol 25 MG TAB PO SCH (17:00)
[2021-12-25] MEDS ORDERED: Folic Acid/Vit B Comp W-C PO SCH (09:00)
[2021-12-25] MEDS ORDERED: Stress 600 With Zinc 1 TAB PO SCH (09:00)
[2021-12-25] MEDS ORDERED: Zinc Sulfate 220 MG CAP PO SCH (09:00)
== END 2021-12-24 15:56 | disposition home or self-care (01) | DRG 388 ==
LOC: SURG B 05:09
PROVIDERS: ADMIT Hospitalist; ATTEND Hospitalist
PROC: 5A1D70Z Performance of Urinary Filtration, Intermittent, Less than 6 Hours Per Day (ICD-10-PCS; principal; 2021-12-23)
DX: K91.30 Postprocedural intestinal obstruction, unspecified as to partial versus complete (principal); E43 Unspecified severe protein-calorie malnutrition; N18.6 End stage renal disease; K51.90 Ulcerative colitis, unspecified, without complications; N03.9 Chronic nephritic syndrome with unspecified morphologic changes; Z68.1 Body mass index [BMI] 19.9 or less, adult; Y83.8 Other surgical procedures as the cause of abnormal reaction of the patient, or of later complication, without mention of misadventure at the time of the procedure; Z20.822 Contact with and (suspected) exposure to COVID-19; D63.1 Anemia in chronic kidney disease; E83.39 Other disorders of phosphorus metabolism; Z85.038 Personal history of other malignant neoplasm of large intestine; Z88.0 Allergy status to penicillin; Z88.8 Allergy status to other drugs, medicaments and biological substances; Z79.899 Other long term (current) drug therapy; Z99.2 Dependence on renal dialysis; Z90.09 Acquired absence of other part of head and neck; Z98.890 Other specified postprocedural states
CPT/HCPCS: 36415; 74250; 80048; 80053; 83605; 83735; 84100; 85025; 85610; 86706; 87340; J1644; J7050; Q4081; Q9963; U0002

== ENCOUNTER 2022-02-07 11:23 | Emergency (ER) | payer MEDICARE ==
[2022-02-07 12:34] LABS: Hemoglobin 10.2 g/dL (12.0-16.0); Lymphocytes 23 % (21-51); MDiff Complete? YES; Macrocytosis SLIGHT = 6-15 cells (100X) (0-5/hpf); Mean Corpuscular HGB CONC 30.6 g/dL (32.0-36.0); Mean Corpuscular Hemoglobin 30.5 pg (27.0-31.0); Mean Corpuscular Volume 99.5 fL (78.0-98.0); Mean Platelet Volume 6.3 fL (7.4-10.4); Monocytes 11 % (0-10); Neutrophil 65 % (42-75); Platelet Count 179 thou/uL (130-400); Platelet Morphology Comment Appears Adequate; RBC Distribution Width 16.1 % (11.5-14.5); Red Blood Cell (RBC) Count 3.34 mill/uL (4.20-5.40); White Blood Cell (WBC) Count 5.7 thou/uL (4.8-10.8)
[2022-02-07 12:35] LABS: Anion Gap 16 mmol/L (10-20); BUN (Urea Nitrogen) 45 mg/dL (9.8-20.1); Calc. Creatinine Clearance 0 mL/min (70-130); Calcium 8.6 mg/dL (7.8-10.44); Carbon Dioxide 27 mmol/L (23-31); Chloride 96 mmol/L (98-107); Estimated GFR 8; Glucose 84 mg/dL (83-110); Potassium 4.7 mmol/L (3.5-5.1); Sodium 134 mmol/L (136-145)
== END 2022-02-07 12:57 | disposition home or self-care (01) ==
LOC: ERS 11:23
DX: D64.9 Anemia, unspecified (principal); N18.9 Chronic kidney disease, unspecified; Z79.899 Other long term (current) drug therapy
CPT/HCPCS: 36415; 80048; 85025; 86850; 86900; 86901; 99284

== ENCOUNTER 2022-02-28 10:40 | Outpatient (CLI) | payer MEDICARE | END 2022-02-28 10:41 | disposition home or self-care (01) | LOC: BICMAMMO 10:40 | PROVIDERS: ATTEND Internal Medicine Rheumatology | DX: Z13.820 Encounter for screening for osteoporosis (principal); M81.0 Age-related osteoporosis without current pathological fracture; M85.89 Other specified disorders of bone density and structure, multiple sites | CPT/HCPCS: 77080 ==

== ENCOUNTER 2022-04-28 10:29 | Day surgery (SDC) | payer MEDICARE ==
[2022-04-28 17:52] VITALS: BP 131/62; TEMP 98
== END 2022-04-28 17:53 | disposition home or self-care (01) ==
LOC: ONC/OP 10:29
PROVIDERS: ATTEND Internal Medicine Nephrology
PROC: 30233N1 Transfusion of Nonautologous Red Blood Cells into Peripheral Vein, Percutaneous Approach (ICD-10-PCS; principal; 2022-04-28)
DX: D64.9 Anemia, unspecified (principal); Z88.0 Allergy status to penicillin; Z88.8 Allergy status to other drugs, medicaments and biological substances
CPT/HCPCS: 36430; 86850; 86900; 86901; 86922; P9016

== ENCOUNTER 2022-05-09 13:42 | Day surgery (SDC) | payer MEDICARE ==
[2022-05-09] MEDS ORDERED: diphenhydrAMINE 25 MG CAP ONE (14:34)
[2022-05-09] MEDS ORDERED: Acetaminophen 500 MG TAB ONE (14:34)
[2022-05-09 17:52] VITALS: BP 134/68; TEMP 97.9
== END 2022-05-09 17:52 | disposition home or self-care (01) ==
LOC: ONC/OP 13:42
PROVIDERS: ATTEND Internal Medicine Hematology & Oncology
PROC: 30233N1 Transfusion of Nonautologous Red Blood Cells into Peripheral Vein, Percutaneous Approach (ICD-10-PCS; principal; 2022-05-09)
DX: D64.9 Anemia, unspecified (principal); D69.6 Thrombocytopenia, unspecified; Z88.0 Allergy status to penicillin; Z88.8 Allergy status to other drugs, medicaments and biological substances
CPT/HCPCS: 36430; 86850; 86900; 86901; 86922; P9016

== ENCOUNTER 2022-05-18 08:16 | Day surgery (SDC) | payer MEDICARE ==
[2022-05-18] MEDS ORDERED: diphenhydrAMINE 25 MG CAP PO SCH (08:30)
[2022-05-18] MEDS ORDERED: Acetaminophen 500 MG TAB PO SCH (08:30)
[2022-05-18] MEDS ORDERED: diphenhydrAMINE 25 MG CAP ONE (09:33)
[2022-05-18] MEDS ORDERED: Acetaminophen 500 MG TAB ONE (09:33)
[2022-05-18 14:51] VITALS: BP 145/65; TEMP 97.7
== END 2022-05-18 14:52 | disposition home or self-care (01) ==
LOC: ONC/OP 08:16
PROVIDERS: ATTEND Internal Medicine Hematology & Oncology
PROC: 30233N1 Transfusion of Nonautologous Red Blood Cells into Peripheral Vein, Percutaneous Approach (ICD-10-PCS; principal; 2022-05-18)
DX: D64.9 Anemia, unspecified (principal); Z88.0 Allergy status to penicillin; Z88.8 Allergy status to other drugs, medicaments and biological substances
CPT/HCPCS: 36430; 86850; 86900; 86901; 86922; P9016

== ENCOUNTER 2022-05-29 11:08 | Day surgery (SDC) | payer MEDICARE ==
[2022-05-29 18:42] VITALS: BP 144/67; TEMP 98.9
== END 2022-05-29 19:04 | disposition home or self-care (01) ==
LOC: ONC/OP 11:08
PROVIDERS: ATTEND Internal Medicine Nephrology
DX: D64.9 Anemia, unspecified (principal); Z88.0 Allergy status to penicillin; Z88.8 Allergy status to other drugs, medicaments and biological substances
CPT/HCPCS: 36430; 86850; 86900; 86901; 86922; P9016

== ENCOUNTER 2023-06-07 13:46 | Outpatient (CLI) | payer MEDICARE | END 2023-06-07 13:47 | disposition home or self-care (01) | LOC: BICMAMMO 13:46 | PROVIDERS: ATTEND Internal Medicine Hematology & Oncology | DX: Z12.31 Encounter for screening mammogram for malignant neoplasm of breast (principal); Z85.038 Personal history of other malignant neoplasm of large intestine | CPT/HCPCS: 77063; 77067 ==

== ENCOUNTER 2024-02-15 08:55 | Emergency (ER) | payer MEDICARE ==
[2024-02-15 09:18] LABS: #Basophils Less than 0.03 10x3/uL (0.0-0.2); #Eosinphils Less than 0.03 10x3/uL (0.0-0.7); %Basophils 0.2 % (0.0-1.0); %Eosinophils 0.2 % (0.0-10.0); %Lymphocytes 13.3 % (21.0-51.0); %Monocytes 13.3 % (0.0-10.0); %Neutrophils 72.8 % (42.0-75.0); Mean Corpuscular HGB CONC 34.6 g/dL (32.0-36.0); Mean Corpuscular Hemoglobin 35.2 pg (27.0-31.0); Mean Corpuscular Volume 101.6 fL (78.0-98.0); Platelet Count 158 10x3/uL (130-400); RBC Distribution Width 14.8 % (11.5-14.5); Red Blood Cell (RBC) Count 2.56 mill/uL (4.20-5.40)
[2024-02-15 09:37] LABS: ALT (SGPT) 45 U/L (8-55); AST (SGOT) 32 U/L (5-34); Albumin 3.4 g/dL (3.4-4.8); Alkaline Phosphatase 193 U/L (40-110); Anion Gap 17 mmol/L (10-20); BUN (Urea Nitrogen) 21 mg/dL (9.8-20.1); Calc. Creatinine Clearance 0 mL/min (70-130); Calcium 8.8 mg/dL (7.8-10.44); Carbon Dioxide 23 mmol/L (23-31); Chloride 95 mmol/L (98-107); Estimated GFR 13; Glucose 76 mg/dL (83-110); Magnesium 2.1 mg/dL (1.6-2.6); Potassium 3.2 mmol/L (3.5-5.1); Protein, Total 6.4 g/dL (5.8-8.1); Sodium 132 mmol/L (136-145)
[2024-02-15 09:43] LABS: Troponin I Less than 0.010 ng/mL (< 0.028)
== END 2024-02-15 13:30 | disposition home or self-care (01) ==
LOC: ERS 08:55
DX: I48.0 Paroxysmal atrial fibrillation (principal); R94.31 Abnormal electrocardiogram [ECG] [EKG]; Z79.01 Long term (current) use of anticoagulants
CPT/HCPCS: 71045; 80053; 83735; 84443; 84484; 85025; 93005; 94760

== ENCOUNTER 2024-07-02 12:30 | Outpatient (CLI) | payer MEDICARE | END 2024-07-02 12:31 | disposition home or self-care (01) | LOC: BICMAMMO 12:30 | PROVIDERS: ATTEND Internal Medicine Hematology & Oncology | DX: Z12.31 Encounter for screening mammogram for malignant neoplasm of breast (principal); Z85.038 Personal history of other malignant neoplasm of large intestine | CPT/HCPCS: 77063; 77067 ==